=== PATIENT | female | born 2000 | race Caucasian/White ===

== ENCOUNTER 2020-09-28 15:56 | Emergency (ER) | payer SELFPAY ==
[2020-09-28 16:05] VITALS: BP 109/73; PULSE 58; RESP 16; TEMP 36.5; O2SAT 96; BMI 21.2
--- NOTE | 2020-09-28 17:31 | W.ED.SKABFB ---
Documented by User: DAVID Calderon 09/29/20 01:36 HPI - Skin/Abscess/Foreign Bdy General: Chief complaint: Skin/Abscess/Foreign Body Stated complaint: ABSCESS IN GROIN Time Seen by Provider: 09/28/20 17:08 History of Present Illness: HPI narrative: Patient is a 19-year-old female that comes to the ED with nodule around vagina. Patient says she noticed it approximately 1 week ago. Was small at first and it has since gotten larger and larger. The bigger its gotten the more painful it has become. She rates the pain currently 9 out of 10 and says it hurts to walk. Patient says she has had this in the past before but it was smaller and resolved on its own within a couple of days. She took 800 mg of ibuprofen today to help with pain. She denies any fever, nausea/vomiting, UTI symptoms, vaginal bleeding, vaginal discharge, vaginal lesions, STD history. Patient says she is on control. Last menstrual period was 28 days ago, patient says with her control she has a period every 3 months. Associated symptoms: Deny chills, fever(s), nausea or vomiting Review of Systems Const: Denies: fever(s), chills or fatigue Eyes: Denies: change in vision or eye discomfort ENMT: Denies: throat pain, odynophagia, nasal discharge or nasal congestion Card: Denies: chest pain, palpitations, edema, swelling of feet/ankles, dyspnea on exertion or orthopnea Resp: Denies: dyspnea, productive cough or non-productive cough GI: Denies: abdominal pain, nausea, vomiting, diarrhea, constipation or hematochezia : Reports: genital lesions (Bartholin cyst on right side); Denies: flank pain, dysuria or hematuria Musc: Denies: neck pain, back pain or extremity swelling Skin/Breast: Denies: rash or new lesions Neuro: Denies: headache(s), numbness in extremities or weakness in extremities PFSH ED PFSH: Social History Smoking and tobacco status: current every day smoker e-cigarettes Physical Exam Const: COMMON NORMALS: no acute distress, patient oriented x3, healthy appearing and alert GENERAL APPEARANCE: cooperative and comfortable HENMT: COMMON NORMALS: normocephalic HEAD & SCALP: normocephalic MOUTH: Normal oral and palatal mucosa present THROAT: posterior oropharynx normal and uvula midline Neck/C-Spine: COMMON NORMALS: supple GENERAL: Yes normal visual inspection Resp: COMMON NORMALS: normal respiratory effort, No retractions, No use of accessory muscles and clear to auscultation bilaterally AUSCULTATION: clear to auscultation bilaterally Cardio: COMMON NORMALS: regular rate, regular rhythm, S1 normal heart sound present, S2 normal heart sound present, No gallops present (Cardio), No clicks present (Cardio), No murmurs present (Cardio) and Peripheral pulses 2+ throughout RATE: regular rate RHYTHM: regular rhythm HEART SOUNDS: S1 normal heart sound present and S2 normal heart sound present PERIPHERAL PULSES: Peripheral pulses 2+ throughout GI: COMMON NORMALS: Normal to inspection, nondistended, normoactive bowel sounds present, Soft to palpation, non-tender and no masses PALPATION: Yes Soft to palpation : COMMON NORMALS: Yes no CVA tenderness BLADDER/KIDNEY EXAM: Yes no CVA tenderness EXTERNAL FEMALE EXAM: Yes Bartholin cyst Bartholin's cyst laterality: right (6cm, tender with erythema and some warmth) Back/Pelvis: COMMON NORMALS: no CVA tenderness Extremity: COMMON NORMALS: normal to inspection Neuro: COMMON NORMALS: patient oriented x3 and moves all extremities SENSORIUM/ORIENTATION: Yes alert Skin: GENERAL SKIN EXAM: dry skin Procedures Abscess I/D Site: bartholin's gland Side (if applicable): right Sedation/analgesia: other (IV morphine before procedure) Local Anesthetic: other anesthetic (Patient did not want any local anesthetic.) Technique: incised with #11 blade Amount of fluid expressed (mL): 15 (Malodorous purulent drainage.) Irrigation: Yes Packing used?: none Course Reevaluation(s): Reevaluation #1: After Bartholin's gland abscess I&D patient had immediate relief from pain. She was feeling a lot better and ready for discharge. I stressed with patient that she needs to make sure she follows up with PCP in about 5 days to reevaluate. Consultations: Consultation #1: I contacted Dr. Stinson the OB doctor [facility] to discuss patient case. She recommended that I drain the abscess here in the ED she instructed me on how to perform procedure. She said to offer patient local anesthetic or the option of no local anesthetic since there will be pain either way. She recommended to put patient on Keflex if there is a lot of purulent drainage from I&D. Vital Signs: Vital signs: Vital Signs Temperature 97.7 F 09/28/20 16:05 Pulse Rate 60 09/28/20 22:32 Respiratory Rate 18 09/28/20 22:32 Blood Pressure 116/78 09/28/20 22:32 Pulse Oximetry 98 09/28/20 22:32 MDM - Skin/Abscess/Foreign Bdy MDM Narrative: Medical decision making narrative: Patient is a 19-year-old female comes to the ED with Bartholin's gland abscess on right side. Exam showed a Bartholin's gland abscess was approximately 6 cm in size, erythematous and tender. I contacted Dr. Stinson she recommended to perform an I&D using local and instructed me on best procedure methods. Patient was given morphine to help with pain and I&D was performed. Approximately 15 mL of malodorous purulent drainage from abscess. Patient's symptoms greatly improved after I&D was performed. Abscess culture collected. White blood cells 15.4 and the rest of CBC and CMP were unremarkable. Patient was given a dose of IV Rocephin while here in the ED and discharged with a prescription for Keflex. She was told to follow-up with PCP in about 5 days to reevaluate. Return to ED precautions given. Patient understood and agree with plan. Lab Data: Attestation: I reviewed the patient's lab results. Labs: Lab Results 09/28/20 09/28/20 09/28/20 Range/Units 17:50 17:56 17:56 WBC 15.4 H (4.5-13.0) 10^3/ uL RBC 3.93 L (4.1-5.3) 10^6/u L Hgb 11.8 (11.5-15.3) g/dL Hct 36.5 L (37.0-47.0) % MCV 92.9 (81-99) fL MCH 30.0 (28.0-34.0) pg MCHC 32.3 (30.0-36.0) g/dL RDW 12.9 (12.1-15.1) % Plt Count 277 (130-400) 10^3/c mm MPV 10.1 (7.4-10.4) fL Neut % (Auto) 85.4 % Lymph % (Auto) 8.4 % [place] % (Auto) 5.5 % Eos % (Auto) 0.1 % Baso % (Auto) 0.3 % Neut # (Auto) 13.17 H (1.8-8.0) 10^3/u L Lymph # (Auto) 1.3 L (1.5-6.5) 10^3/u L [place] # (Auto) 0.9 (0.2-0.9) 10^3/u L Eos # (Auto) 0.0 (0.0-0.8) 10^3/u L Baso # (Auto) 0.0 (0.0-0.1) 10^3/u L Nucleated RBC % (a uto) 0 % Nucleated RBCs # 0.0 /100WBC Sodium 139 (136-145) mmol/L Potassium 4.4 (3.5-5.1) mmol/L Chloride 104 (98-107) mmol/L Carbon Dioxide 21 L (22-29) mmol/L Anion Gap 18.4 (5-19) BUN 10 (6-20) mg/dL Creatinine 0.6 (0.5-0.9) mg/dL GFR Calculation 128.8 (90-130) mL/min Glucose 90 (65-115) mg/dL Calculated Osmolal ity 287 (285-295) mOsm/k g Calcium 9.1 (8.5-10.5) mg/dL Total Bilirubin 0.6 (0.15-1.2) mg/dL AST 23 (0-32) U/L ALT 19 (0-33) U/L Alkaline Phosphata se 94 (35-105) IU/L Total Protein 7.4 (6.6-8.7) g/dL Albumin 3.6 (3.5-5.2) g/dL Globulin 3.8 (1.3-4.6) g/dL HCG, Qual (Negative) Urine Color Yellow (Yellow) Urine Appearance Sl cloudy A (CLEAR) Urine pH 5 (5-7) Ur Specific Gravit y 1.025 (1.005-1.030) Urine Protein Neg (Negative) Urine Glucose (UA) Norm (Normal) Urine Ketones 1+ H (Negative) Urine Blood 2+ H (Negative) Urine Nitrate Negative (Negative) Urine Bilirubin 1+ H (Negative) Urine Urobilinogen 4 H (Negative) mg/dL Ur Leukocyte Bethanie ase 2+ H (Negative) Urine RBC 5-10 H (0-2) /hpf Urine WBC Too numerous to c nt H (0-5) /hpf Ur Squamous Epith Cells Too numerous to c nt H (0-5) /hpf Calcium Oxalate Cr ystal 10-15 H /hpf Amorphous Sediment Not Reportable Urine Bacteria 2+ H (NONE) /hpf 09/28/20 Range/Units 18:07 WBC (4.5-13.0) 10^3/ uL RBC (4.1-5.3) 10^6/u L Hgb (11.5-15.3) g/dL Hct (37.0-47.0) % MCV (81-99) fL MCH (28.0-34.0) pg MCHC (30.0-36.0) g/dL RDW (12.1-15.1) % Plt Count (130-400) 10^3/c mm MPV (7.4-10.4) fL Neut % (Auto) % Lymph % (Auto) % [place] % (Auto) % Eos % (Auto) % Baso % (Auto) % Neut # (Auto) (1.8-8.0) 10^3/u L Lymph # (Auto) (1.5-6.5) 10^3/u L [place] # (Auto) (0.2-0.9) 10^3/u L Eos # (Auto) (0.0-0.8) 10^3/u L Baso # (Auto) (0.0-0.1) 10^3/u L Nucleated RBC % (a uto) % Nucleated RBCs # /100WBC Sodium (136-145) mmol/L Potassium (3.5-5.1) mmol/L Chloride (98-107) mmol/L Carbon Dioxide (22-29) mmol/L Anion Gap (5-19) BUN (6-20) mg/dL Creatinine (0.5-0.9) mg/dL GFR Calculation (90-130) mL/min Glucose (65-115) mg/dL Calculated Osmolal ity (285-295) mOsm/k g Calcium (8.5-10.5) mg/dL Total Bilirubin (0.15-1.2) mg/dL AST (0-32) U/L ALT (0-33) U/L Alkaline Phosphata se (35-105) IU/L Total Protein (6.6-8.7) g/dL Albumin (3.5-5.2) g/dL Globulin (1.3-4.6) g/dL HCG, Qual Negative (Negative) Urine Color (Yellow) Urine Appearance (CLEAR) Urine pH (5-7) Ur Specific Gravit y (1.005-1.030) Urine Protein (Negative) Urine Glucose (UA) (Normal) Urine Ketones (Negative) Urine Blood (Negative) Urine Nitrate (Negative) Urine Bilirubin (Negative) Urine Urobilinogen (Negative) mg/dL Ur Leukocyte Bethanie ase (Negative) Urine RBC (0-2) /hpf Urine WBC (0-5) /hpf Ur Squamous Epith Cells (0-5) /hpf Calcium Oxalate Cr ystal /hpf Amorphous Sediment Urine Bacteria (NONE) /hpf Discharge Plan Discharge Patient Disposition: Home Clinical Impression: Abscess of Bartholin's gland Condition: Stable Prescriptions: New Keflex 500 mg capsule 500 mg PO TID 7 Days Qty: 21 RF: 0 No Action Aviane 0.1-20 mg-mcg tablet 1 tab PO DAILY@07 RF: 0 ibuprofen 200 mg Tablet 800 mg PO PRN RF: 0 Augmentin 875-125 mg Tablet 1 tab PO BID RF: 0 Discharge Orders: Discharge ED (Routine); Ordered 09/28/20 Ordered By: Bonifacio Mullen Referrals: Amberly Isabel MD [Primary Care Provider] - Discharge Diet: Regular Discharge Activity: Resume usual activity Patient Instructions: Bartholin's Abscess, Incision and Drainage (ED) Activity Restrictions/Additional Instructions: Follow-up with medical provider as directed in about 5 days for reevaluation. Take medications as prescribed. Return to the ER or your medical provider if condition worsens. Please read and understand discharge instructions. If any questions, please ask. Stand Alone Forms: Work/School Release Coding Level of Care Code ED Director Of Gift Planning for g Fwd Exam Comprehensive Documented by User: Rufino Ballard MD 09/29/20 11:12 HPI - Skin/Abscess/Foreign Bdy General: Chief complaint: Skin/Abscess/Foreign Body Stated complaint: ABSCESS IN GROIN Time Seen by Provider: 09/28/20 17:08 PFSH ED PFSH: Social History Smoking and tobacco status: current every day smoker e-cigarettes Course Vital Signs: Vital signs: Vital Signs Temperature 97.7 F 09/28/20 16:05 Pulse Rate 60 09/28/20 22:32 Respiratory Rate 18 09/28/20 22:32 Blood Pressure 116/78 09/28/20 22:32 Pulse Oximetry 98 09/28/20 22:32 MDM - Skin/Abscess/Foreign Bdy Lab Data: Labs: Lab Results 09/28/20 09/28/20 09/28/20 Range/Units 17:50 17:56 17:56 WBC 15.4 H (4.5-13.0) 10^3/ uL RBC 3.93 L (4.1-5.3) 10^6/u L Hgb 11.8 (11.5-15.3) g/dL Hct 36.5 L (37.0-47.0) % MCV 92.9 (81-99) fL MCH 30.0 (28.0-34.0) pg MCHC 32.3 (30.0-36.0) g/dL RDW 12.9 (12.1-15.1) % Plt Count 277 (130-400) 10^3/c mm MPV 10.1 (7.4-10.4) fL Neut % (Auto) 85.4 % Lymph % (Auto) 8.4 % [place] % (Auto) 5.5 % Eos % (Auto) 0.1 % Baso % (Auto) 0.3 % Neut # (Auto) 13.17 H (1.8-8.0) 10^3/u L Lymph # (Auto) 1.3 L (1.5-6.5) 10^3/u L [place] # (Auto) 0.9 (0.2-0.9) 10^3/u L Eos # (Auto) 0.0 (0.0-0.8) 10^3/u L Baso # (Auto) 0.0 (0.0-0.1) 10^3/u L Nucleated RBC % (a uto) 0 % Nucleated RBCs # 0.0 /100WBC Sodium 139 (136-145) mmol/L Potassium 4.4 (3.5-5.1) mmol/L Chloride 104 (98-107) mmol/L Carbon Dioxide 21 L (22-29) mmol/L Anion Gap 18.4 (5-19) BUN 10 (6-20) mg/dL Creatinine 0.6 (0.5-0.9) mg/dL GFR Calculation 128.8 (90-130) mL/min Glucose 90 (65-115) mg/dL Calculated Osmolal ity 287 (285-295) mOsm/k g Calcium 9.1 (8.5-10.5) mg/dL Total Bilirubin 0.6 (0.15-1.2) mg/dL AST 23 (0-32) U/L ALT 19 (0-33) U/L Alkaline Phosphata se 94 (35-105) IU/L Total Protein 7.4 (6.6-8.7) g/dL Albumin 3.6 (3.5-5.2) g/dL Globulin 3.8 (1.3-4.6) g/dL HCG, Qual (Negative) Urine Color Yellow (Yellow) Urine Appearance Sl cloudy A (CLEAR) Urine pH 5 (5-7) Ur Specific Gravit y 1.025 (1.005-1.030) Urine Protein Neg (Negative) Urine Glucose (UA) Norm (Normal) Urine Ketones 1+ H (Negative) Urine Blood 2+ H (Negative) Urine Nitrate Negative (Negative) Urine Bilirubin 1+ H (Negative) Urine Urobilinogen 4 H (Negative) mg/dL Ur Leukocyte Bethanie ase 2+ H (Negative) Urine RBC 5-10 H (0-2) /hpf Urine WBC Too numerous to c nt H (0-5) /hpf Ur Squamous Epith Cells Too numerous to c nt H (0-5) /hpf Calcium Oxalate Cr ystal 10-15 H /hpf Amorphous Sediment Not Reportable Urine Bacteria 2+ H (NONE) /hpf 09/28/20 Range/Units 18:07 WBC (4.5-13.0) 10^3/ uL RBC (4.1-5.3) 10^6/u L Hgb (11.5-15.3) g/dL Hct (37.0-47.0) % MCV (81-99) fL MCH (28.0-34.0) pg MCHC (30.0-36.0) g/dL RDW (12.1-15.1) % Plt Count (130-400) 10^3/c mm MPV (7.4-10.4) fL Neut % (Auto) % Lymph % (Auto) % [place] % (Auto) % Eos % (Auto) % Baso % (Auto) % Neut # (Auto) (1.8-8.0) 10^3/u L Lymph # (Auto) (1.5-6.5) 10^3/u L [place] # (Auto) (0.2-0.9) 10^3/u L Eos # (Auto) (0.0-0.8) 10^3/u L Baso # (Auto) (0.0-0.1) 10^3/u L Nucleated RBC % (a uto) % Nucleated RBCs # /100WBC Sodium (136-145) mmol/L Potassium (3.5-5.1) mmol/L Chloride (98-107) mmol/L Carbon Dioxide (22-29) mmol/L Anion Gap (5-19) BUN (6-20) mg/dL Creatinine (0.5-0.9) mg/dL GFR Calculation (90-130) mL/min Glucose (65-115) mg/dL Calculated Osmolal ity (285-295) mOsm/k g Calcium (8.5-10.5) mg/dL Total Bilirubin (0.15-1.2) mg/dL AST (0-32) U/L ALT (0-33) U/L Alkaline Phosphata se (35-105) IU/L Total Protein (6.6-8.7) g/dL Albumin (3.5-5.2) g/dL Globulin (1.3-4.6) g/dL HCG, Qual Negative (Negative) Urine Color (Yellow) Urine Appearance (CLEAR) Urine pH (5-7) Ur Specific Gravit y (1.005-1.030) Urine Protein (Negative) Urine Glucose (UA) (Normal) Urine Ketones (Negative) Urine Blood (Negative) Urine Nitrate (Negative) Urine Bilirubin (Negative) Urine Urobilinogen (Negative) mg/dL Ur Leukocyte Bethanie ase (Negative) Urine RBC (0-2) /hpf Urine WBC (0-5) /hpf Ur Squamous Epith Cells (0-5) /hpf Calcium Oxalate Cr ystal /hpf Amorphous Sediment Urine Bacteria (NONE) /hpf Discharge Plan Discharge Patient Disposition: Home Clinical Impression: Abscess of Bartholin's gland Condition: Stable Prescriptions: New Keflex 500 mg capsule 500 mg PO TID 7 Days Qty: 21 RF: 0 No Action Aviane 0.1-20 mg-mcg tablet 1 tab PO DAILY@07 RF: 0 ibuprofen 200 mg Tablet 800 mg PO PRN RF: 0 Augmentin 875-125 mg Tablet 1 tab PO BID RF: 0 Discharge Orders: Discharge ED (Routine); Ordered 09/28/20 Ordered By: Bonifacio Mullen Referrals: Amberly Isabel MD [Primary Care Provider] - Discharge Diet: Regular Discharge Activity: Resume usual activity Patient Instructions: Bartholin's Abscess, Incision and Drainage (ED) Activity Restrictions/Additional Instructions: Follow-up with medical provider as directed in about 5 days for reevaluation. Take medications as prescribed. Return to the ER or your medical provider if condition worsens. Please read and understand discharge instructions. If any questions, please ask. Stand Alone Forms: Work/School Release Coding Level of Care Code ED Director Of Gift Planning for Chg Fwd Exam Comprehensive
--- NOTE | 2020-09-28 17:44 | PC.PHAR ---
pt states she has been taking augmentin bid since yesterday-pt states this was one of her family members old rx
[2020-09-28 18:05] LABS: Basophils % 0.3 %; Eosinophils % 0.1 %; Hematocrit 36.5 % (37.0-47.0); Hemoglobin 11.8 g/dL (11.5-15.3); Lymphocytes # 1.3 10^3/uL (1.5-6.5); Lymphocytes % 8.4 %; Mean Corpuscular HGB Conc 32.3 g/dL (30.0-36.0); Mean Corpuscular Volume 92.9 fL (81-99); Mean Platelet Volume 10.1 fL (7.4-10.4); Monocytes # 0.9 10^3/uL (0.2-0.9); Monocytes % 5.5 %; Neutrophils # 13.17 10^3/uL (1.8-8.0); Neutrophils % 85.4 %; Nucleated Red Blood Cells % 0 %; Platelet Count 277 10^3/cmm (130-400); Red Blood Count 3.93 10^6/uL (4.1-5.3); Red Cell Distribution Width 12.9 % (12.1-15.1); White Blood Count 15.4 10^3/uL (4.5-13.0)
[2020-09-28 18:07] VITALS: RESP 18
[2020-09-28] MEDS: ondansetron 2 mg/ML SDV 2 mL 4 MG IVP (18:07)
[2020-09-28] MEDS: morphine 4 mg/mL SDV 1 mL IVP ×2 (18:07→20:38)
[2020-09-28 18:45] LABS: Bilirubin Urine 1+ (Negative); Blood Urine 2+ (Negative); Glucose Urine UA Norm (Normal); Ketones Urine 1+ (Negative); Leukocyte Esterase Urine 2+ (Negative); Nitrate Urine Negative (Negative); Protein Urine Neg (Negative); Specific Gravity, Urine 1.025 (1.005-1.030); Urine Color Yellow (Yellow); Urobilinogen Urine 4 mg/dL (Negative); pH Urine 5 (5-7)
[2020-09-28 18:46] LABS: Squamous Epithelial Cell Urine TOO NUMEROUS TO CNT /hpf (0-5); WBC Urine TOO NUMEROUS TO CNT /hpf (0-5)
[2020-09-28 18:47] LABS: Add Urine Culture? No; Bacteria Urine 2+ /hpf
[2020-09-28 18:48] LABS: Alanine Aminotransferase 19 U/L (0-33); Albumin Level 3.6 g/dL (3.5-5.2); Alkaline Phosphatase 94 IU/L (35-105); Anion Gap 18.4 (5-19); Aspartate Amino Transferase 23 U/L (0-32); Blood Urea Nitrogen 10 mg/dL (6-20); Calcium 9.1 mg/dL (8.5-10.5); Carbon Dioxide 21 mmol/L (22-29); Chloride 104 mmol/L (98-107); Globulin 3.8 g/dL (1.3-4.6); Glomerular Filtration Rate 128.8 mL/min (90-130); Glucose 90 mg/dL (65-115); Osmolality Calculated 287 mOsm/kg (285-295); Potassium 4.4 mmol/L (3.5-5.1); Sodium 139 mmol/L (136-145); Total Bilirubin 0.6 mg/dL (0.15-1.2); Total Protein 7.4 g/dL (6.6-8.7)
[2020-09-28 18:59] LABS: HCG, Serum Qual Negative (Negative)
[2020-09-28] MEDS: cefTRIAXone 2,000 MG in sodium chloride 0.9% (plus) 50 ML 100 MG IV (19:55)
[2020-09-28] MEDS: sodium chloride 0.9% 1,000 ML 999 ML IV (19:56)
[2020-09-28 20:38] VITALS: RESP 187; O2SAT 98
[2020-09-28 22:32] VITALS: BP 116/78; PULSE 60; RESP 18; O2SAT 98
== END 2020-09-28 22:00 | disposition home or self-care (01) ==
PROVIDERS: Emergency Provider Physician Assistant; PCP Family Medicine
DX: N75.1 Abscess of Bartholin's gland (principal); F17.290 Nicotine dependence, other tobacco product, uncomplicated
CPT/HCPCS: 56420; 80053; 81001; 84703; 85025; 87070; 87075; 87205; 96365; 96375; 96376; 99283; J0696; J2270; J2405; J7030

== ENCOUNTER 2020-12-19 21:09 | Emergency (ER) | payer SELFPAY ==
--- NOTE | 2020-12-19 21:11 | US_ITS ---
WS: [id number] Gallbladder ultrasound, 12/19/2020 Clinical Data: RUQ pain Comparison: None. Findings: The gallbladder shows no sludge or stone. The wall measures 0.2 cm with no pericholecystic fluid. The common bile duct is 0.4 cm and there are no intrahepatic ductal abnormalities. Liver shows no cysts, masses or dilated intrahepatic ducts. The pancreas is not obscured by overlying bowel gas and no cyst, pseudocyst, or evidence of pancreati tis is noted. Right kidney measures 9.6 cm and no cyst, masses or hydronephrosis can be seen. The aorta and inferior vena cava show no vascular abnormalities. US/US gall bladder [id number] Impression: Negative right upper quadrant and gallbladder ultrasound.
[2020-12-19 21:12] VITALS: BP 126/70; PULSE 92; RESP 16; TEMP 37.2; O2SAT 100; BMI 22.1
--- NOTE | 2020-12-19 21:17 | W.ED.ABDPA2 ---
HPI - Abdominal Pain General: Chief Complaint: Abdominal Pain Stated Complaint: RUQ ABD PAIN Time Seen by Provider: 12/19/20 21:10 History of Present Illness: HPI narrative: Patient is a 20-year-old female comes to the ED with abdominal pain. Pain started approximately 1 week ago. Pain is located in the right upper quadrant. She rates the pain a 7 out of 10. She says that she has not had much of an appetite since onset of pain. Pain does not worsen after eating. She denies any fever, chills, nausea, vomiting, diarrhea, constipation, dysuria or hematuria. Associated Symptoms: Denies chills, constipation, diarrhea, dysuria, fever(s), hematochezia, hematuria, nausea and vomiting Related Data: Date of Last Menstrual Period: 12/14/20 Review of Systems Const: Denies: fever(s), chills or fatigue Eyes: Denies: change in vision or eye discomfort ENMT: Denies: throat pain, odynophagia, nasal discharge or nasal congestion Card: Denies: chest pain, palpitations, edema, swelling of feet/ankles, dyspnea on exertion or orthopnea Resp: Denies: dyspnea, productive cough or non-productive cough GI: Reports: abdominal pain; Denies: nausea, vomiting, diarrhea, constipation or hematochezia : Denies: flank pain, dysuria or hematuria Musc: Denies: neck pain, back pain or extremity swelling Skin/Breast: Denies: rash or new lesions Neuro: Denies: headache(s), numbness in extremities or weakness in extremities PFS ED PFSH: Social History Smoking and tobacco status: current every day smoker e-cigarettes Female Reproductive History: Date of last menstrual period: 12/14/20 Physical Exam Const: COMMON NORMALS: no acute distress, patient oriented x3, healthy appearing and alert GENERAL APPEARANCE: cooperative and comfortable HENMT: COMMON NORMALS: normocephalic HEAD & SCALP: normocephalic MOUTH: Normal oral and palatal mucosa present THROAT: posterior oropharynx normal and uvula midline Neck/C-Spine: COMMON NORMALS: supple GENERAL: Yes normal visual inspection Resp: COMMON NORMALS: normal respiratory effort, No retractions, No use of accessory muscles and clear to auscultation bilaterally AUSCULTATION: clear to auscultation bilaterally Cardio: COMMON NORMALS: regular rate, regular rhythm, S1 normal heart sound present, S2 normal heart sound present, No gallops present (Cardio), No clicks present (Cardio), No murmurs present (Cardio) and Peripheral pulses 2+ throughout RATE: regular rate RHYTHM: regular rhythm HEART SOUNDS: S1 normal heart sound present and S2 normal heart sound present PERIPHERAL PULSES: Peripheral pulses 2+ throughout GI: COMMON NORMALS: Normal to inspection, nondistended, normoactive bowel sounds present, Soft to palpation and no masses PALPATION: Yes Soft to palpation and Yes Tenderness to palpation present (GI) Details: RLQ and RUQ (Positive Wagoner sign.) : COMMON NORMALS: Yes no CVA tenderness BLADDER/KIDNEY EXAM: Yes no CVA tenderness Back/Pelvis: COMMON NORMALS: no CVA tenderness Extremity: COMMON NORMALS: normal to inspection Neuro: COMMON NORMALS: patient oriented x3 SENSORIUM/ORIENTATION: Yes alert GAIT: Yes Normal gait present Skin: GENERAL SKIN EXAM: dry skin Course Vital Signs: Vital signs: Vital Signs Temperature 98.9 F 12/19/20 21:12 Pulse Rate 82 12/19/20 23:26 Respiratory Rate 17 12/19/20 23:26 Blood Pressure 110/72 12/19/20 23:26 Pulse Oximetry 99 12/19/20 23:26 MDM - Abdominal Pain MDM Narrative: Medical decision making narrative: Patient is a 20-year-old female comes to the ED with abdominal pain. Patient has no other symptoms denies any fever, chills, nausea/vomiting or diarrhea. Exam findings show a nontoxic appearing patient in no acute distress or pain. She has tenderness upon palpation of her right upper quadrant region with positive Wagoner sign. She also has some mild generalized tenderness of the right lower quadrant as well. Vital stable all labs were unremarkable. Ultrasound of the gallbladder showed no acute findings. CT of the abdomen pelvis showed some small bowel enteritis. Patient diagnosed with gastroenteritis and she was discharged home with a prescription for dicyclomine and Reglan. She was told to drink plenty of fluids and stay hydrated and to follow-up with PCP in 7 to 10 days for reevaluation. Return to ED precautions given. Patient understood agree with plan. Lab Data: Attestation: I reviewed the patient's lab results. Labs: Lab Results 12/19/20 12/19/20 12/19/20 Range/Units 21:25 21:25 21:25 WBC 10.2 (4.5-13.0) 10^3/ uL RBC 3.95 L (4.1-5.3) 10^6/u L Hgb 11.9 (11.5-15.3) g/dL Hct 36.4 L (37.0-47.0) % MCV 92.2 (81-99) fL MCH 30.1 (28.0-34.0) pg MCHC 32.7 (30.0-36.0) g/dL RDW 12.0 L (12.1-15.1) % Plt Count 313 (130-400) 10^3/c mm MPV 9.3 (7.4-10.4) fL Neut % (Auto) 80.7 % Lymph % (Auto) 12.4 % Forest % (Auto) 6.2 % Eos % (Auto) 0.2 % Baso % (Auto) 0.3 % Neut # (Auto) 8.19 H (1.8-8.0) 10^3/u L Lymph # (Auto) 1.3 L (1.5-6.5) 10^3/u L Forest # (Auto) 0.6 (0.2-0.9) 10^3/u L Eos # (Auto) 0.0 (0.0-0.8) 10^3/u L Baso # (Auto) 0.0 (0.0-0.1) 10^3/u L Nucleated RBC % (a uto) 0 % Nucleated RBCs # 0.0 /100WBC Sodium 136 (136-145) mmol/L Potassium 3.8 (3.5-5.1) mmol/L Chloride 100 (98-107) mmol/L Carbon Dioxide 23 (22-29) mmol/L Anion Gap 16.8 (5-19) BUN 10 (6-20) mg/dL Creatinine 0.5 (0.5-0.9) mg/dL GFR Calculation 157.3 H (90-130) mL/min Glucose 84 (65-115) mg/dL Calculated Osmolal ity 280 L (285-295) mOsm/k g Calcium 8.9 (8.5-10.5) mg/dL Total Bilirubin 0.5 (0.15-1.2) mg/dL AST 15 (0-32) U/L ALT 14 (0-33) U/L Alkaline Phosphata se 85 (35-105) IU/L Total Protein 7.5 (6.6-8.7) g/dL Albumin 4.1 (3.5-5.2) g/dL Globulin 3.4 (1.3-4.6) g/dL Lipase 12 L (13-60) U/L HCG, Qual Negative (Negative) Urine Color (Yellow) Urine Appearance (CLEAR) Urine pH (5-7) Ur Specific Gravit y (1.005-1.030) Urine Protein (Negative) Urine Glucose (UA) (Normal) Urine Ketones (Negative) Urine Blood (Negative) Urine Nitrate (Negative) Urine Bilirubin (Negative) Urine Urobilinogen (Negative) mg/dL Ur Leukocyte Bethanie ase (Negative) Urine RBC (0-2) /hpf Urine WBC (0-5) /hpf Ur Squamous Epith Cells (0-5) /hpf Amorphous Sediment Urine Bacteria (NONE) /hpf Urine Mucus /hpf /01/04 Range/Units Unknown WBC (4.5-13.0) 10^3/ uL RBC (4.1-5.3) 10^6/u L Hgb (11.5-15.3) g/dL Hct (37.0-47.0) % MCV (81-99) fL MCH (28.0-34.0) pg MCHC (30.0-36.0) g/dL RDW (12.1-15.1) % Plt Count (130-400) 10^3/c mm MPV (7.4-10.4) fL Neut % (Auto) % Lymph % (Auto) % Forest % (Auto) % Eos % (Auto) % Baso % (Auto) % Neut # (Auto) (1.8-8.0) 10^3/u L Lymph # (Auto) (1.5-6.5) 10^3/u L Forest # (Auto) (0.2-0.9) 10^3/u L Eos # (Auto) (0.0-0.8) 10^3/u L Baso # (Auto) (0.0-0.1) 10^3/u L Nucleated RBC % (a uto) % Nucleated RBCs # /100WBC Sodium (136-145) mmol/L Potassium (3.5-5.1) mmol/L Chloride (98-107) mmol/L Carbon Dioxide (22-29) mmol/L Anion Gap (5-19) BUN (6-20) mg/dL Creatinine (0.5-0.9) mg/dL GFR Calculation (90-130) mL/min Glucose (65-115) mg/dL Calculated Osmolal ity (285-295) mOsm/k g Calcium (8.5-10.5) mg/dL Total Bilirubin (0.15-1.2) mg/dL AST (0-32) U/L ALT (0-33) U/L Alkaline Phosphata se (35-105) IU/L Total Protein (6.6-8.7) g/dL Albumin (3.5-5.2) g/dL Globulin (1.3-4.6) g/dL Lipase (13-60) U/L HCG, Qual (Negative) Urine Color Yellow (Yellow) Urine Appearance Sl hazy (CLEAR) Urine pH 5 (5-7) Ur Specific Gravit y 1.015 (1.005-1.030) Urine Protein Trace (Negative) Urine Glucose (UA) Norm (Normal) Urine Ketones 3+ H (Negative) Urine Blood 2+ H (Negative) Urine Nitrate Negative (Negative) Urine Bilirubin Neg (Negative) Urine Urobilinogen 1 H (Negative) mg/dL Ur Leukocyte Bethanie ase Negative (Negative) Urine RBC 0-4 H (0-2) /hpf Urine WBC 5-10 H (0-5) /hpf Ur Squamous Epith Cells 0-4 H (0-5) /hpf Amorphous Sediment Not Reportable Urine Bacteria Trace (NONE) /hpf Urine Mucus 1+ /hpf Imaging Data ^: US: Attestation: I personally reviewed and interpreted this imaging study as follows: Radiologist's impression: Ultrasound gallbladder?prelim report?normal right upper quadrant ultrasound findings. Gallbladder normal and CBD normal. CT Abd/Pel: Attestation: I personally reviewed and interpreted this imaging study as follows: Radiologist's impression: [employer] [address] [address] Scan Report Signed Patient: Mery Valencia Unit #: [id number] : 2000 Age/Sex: 20 / F ADM Date: 12/19/20 Loc: ER Room/Bed: Attending Dr: Ordering Provider/Ordering MD: Bonifacio Mullen Date of Service: 12/19/20 Procedure(s): CT abdomen pelvis w con* [id number] Accession Number(s): [id number] Report Number: [id number] PROCEDURE INFORMATION: Exam: CT Abdomen And Pelvis With Contrast Exam date and time: 12/19/2020 9:47 PM Age: 20 years old Clinical indication: Abdominal pain; Localized; Right lower quadrant (rlq); Patient HX: Rlq pain; Additional info: Abdominal pain ruq and rlq TECHNIQUE: Imaging protocol: Computed tomography of the abdomen and pelvis with contrast. Radiation optimization: All CT scans at this facility use at least one of these dose optimization techniques: automated exposure control; mA and/or kV adjustment per patient size (includes targeted exams where dose is matched to clinical indication); or iterative reconstruction. Contrast material: OMNI 300; Contrast volume: 75 ml; Contrast route: INTRAVENOUS (IV); COMPARISON: US gall bladder [id number] 12/19/2020 9:26 PM RADIATION DOSE METRICS: Total DLP (mGy-cm): 699.19 FINDINGS: Lungs: The lung bases are clear. No effusion Liver: Normal. No mass. Gallbladder and bile ducts: No wall thickening, pericholecystic fluid or stones. Pancreas: Normal. No ductal dilation. Spleen: Normal. No splenomegaly. Adrenal glands: Normal. No mass. Kidneys and ureters: Normal. No hydronephrosis. Stomach and bowel: Multiple loops of thickened proximal small bowel. Appendix: No evidence of appendicitis. Intraperitoneal space: Unremarkable. No free air. No significant fluid collection. Vasculature: Unremarkable. No abdominal aortic aneurysm. Lymph nodes: Unremarkable. No enlarged lymph nodes. Urinary bladder: Unremarkable as visualized. Reproductive: Unremarkable as visualized. Bones/joints: Unremarkable. No acute fracture. Soft tissues: Unremarkable. CT/CT abdomen pelvis w con* [id number] IMPRESSION: Infectious/inflammatory proximal small bowel enteritis. Radiation Dose CTDIVOL = (mGy): DLP = 699.19 (mGy-cm) Dictated By: Robert Pop Signed By: Robert Pop Signed Date/Time: 12/19/202209 DD/ 08 Discharge Plan Discharge Patient Disposition: Home Clinical Impression: Gastroenteritis Condition: Stable Prescriptions: New dicyclomine 20 mg tablet 20 mg PO QID Qty: 20 RF: 0 Reglan 10 mg tablet 10 mg PO Q6H PRN (Reason: nausea and vomiting) Qty: 10 RF: 0 No Action Aviane 0.1-20 mg-mcg tablet 1 tab PO DAILY@07 RF: 0 ibuprofen 200 mg Tablet 800 mg PO PRN RF: 0 Augmentin 875-125 mg Tablet 1 tab PO BID RF: 0 Discharge Orders: Discharge ED (Routine); Ordered 12/19/20 Ordered By: Bonifacio Mullen Discharge Diet: Regular Discharge Activity: Resume usual activity Patient Instructions: Gastroenteritis (ED) Activity Restrictions/Additional Instructions: Follow-up with medical provider as directed in 7 to 10 days for reevaluation. Take medications as prescribed. Drink plenty of fluids and stay hydrated. Return to the ER or your medical provider if condition worsens. Please read and understand discharge instructions. Thank you for choosing [facility] for your healthcare needs today. Please realize this is an emergency room and that we are providing you with a medical screening exam and this may not be complete and all inclusive of all the testing and or work up that you may need to determine your ailment or severity of your illness. It is very important that you follow up as instructed or that you return to the Emergency Department should you have concerns or if your condition changes or worsens in any way. 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
[2020-12-19 21:31] LABS: Basophils % 0.3 %; Eosinophils % 0.2 %; Hematocrit 36.4 % (37.0-47.0); Hemoglobin 11.9 g/dL (11.5-15.3); Lymphocytes # 1.3 10^3/uL (1.5-6.5); Lymphocytes % 12.4 %; Mean Corpuscular HGB Conc 32.7 g/dL (30.0-36.0); Mean Corpuscular Hemoglobin 30.1 pg (28.0-34.0); Mean Corpuscular Volume 92.2 fL (81-99); Mean Platelet Volume 9.3 fL (7.4-10.4); Monocytes # 0.6 10^3/uL (0.2-0.9); Monocytes % 6.2 %; Neutrophils # 8.19 10^3/uL (1.8-8.0); Neutrophils % 80.7 %; Nucleated Red Blood Cells % 0 %; Platelet Count 313 10^3/cmm (130-400); Red Blood Count 3.95 10^6/uL (4.1-5.3); White Blood Count 10.2 10^3/uL (4.5-13.0)
--- NOTE | 2020-12-19 21:43 | CTR_ITS ---
PROCEDURE INFORMATION: Exam: CT Abdomen And Pelvis With Contrast Exam date and time: 12/19/2020 9:47 PM Age: 20 years old Clinical indication: Abdominal pain; Localized; Right lower quadrant (rlq); Patient HX: Rlq pain; Additional info: Abdominal pain ruq and rlq TECHNIQUE: Imaging protocol: Computed tomography of the abdomen and pelvis with contrast. Radiation optimization: All CT scans at this facility use at least one of these dose optimization techniques: automated exposure control; mA and/or kV adjustment per patient size (includes targeted exams where dose is matched to clinical indication); or iterative reconstruction. Contrast material: OMNI 300; Contrast volume: 75 ml; Contrast route: INTRAVENOUS (IV); COMPARISON: US gall bladder [id number] 12/19/2020 9:26 PM RADIATION DOSE METRICS: Total DLP (mGy-cm): 699.19 FINDINGS: Lungs: The lung bases are clear. No effusion Liver: Normal. No mass. Gallbladder and bile ducts: No wall thickening, pericholecystic fluid or stones. Pancreas: Normal. No ductal dilation. Spleen: Normal. No splenomegaly. Adrenal glands: Normal. No mass. Kidneys and ureters: Normal. No hydronephrosis. Stomach and bowel: Multiple loops of thickened proximal small bowel. Appendix: No evidence of appendicitis. Intraperitoneal space: Unremarkable. No free air. No significant fluid collection. Vasculature: Unremarkable. No abdominal aortic aneurysm. Lymph nodes: Unremarkable. No enlarged lymph nodes. Urinary bladder: Unremarkable as visualized. Reproductive: Unremarkable as visualized. Bones/joints: Unremarkable. No acute fracture. Soft tissues: Unremarkable. CT/CT abdomen pelvis w con* [id number] IMPRESSION: Infectious/inflammatory proximal small bowel enteritis. Radiation Dose CTDIVOL = (mGy): DLP = 699.19 (mGy-cm)
[2020-12-19 21:46] LABS: HCG, Serum Qual Negative (Negative)
[2020-12-19 21:51] VITALS: RESP 18; O2SAT 97
[2020-12-19] MEDS: ondansetron 2 mg/ML SDV 2 mL 4 MG IVP (21:51)
[2020-12-19] MEDS: morphine 4 mg/mL SDV 1 mL IVP ×2 (21:51→23:05)
[2020-12-19] MEDS: sodium chloride 0.9% 500 ML 999 ML IV (21:51)
[2020-12-19 21:55] LABS: Alanine Aminotransferase 14 U/L (0-33); Albumin Level 4.1 g/dL (3.5-5.2); Alkaline Phosphatase 85 IU/L (35-105); Anion Gap 16.8 (5-19); Aspartate Amino Transferase 15 U/L (0-32); Blood Urea Nitrogen 10 mg/dL (6-20); Calcium 8.9 mg/dL (8.5-10.5); Carbon Dioxide 23 mmol/L (22-29); Chloride 100 mmol/L (98-107); Globulin 3.4 g/dL (1.3-4.6); Glomerular Filtration Rate 157.3 mL/min (90-130); Glucose 84 mg/dL (65-115); Lipase 12 U/L (13-60); Osmolality Calculated 280 mOsm/kg (285-295); Potassium 3.8 mmol/L (3.5-5.1); Sodium 136 mmol/L (136-145); Total Bilirubin 0.5 mg/dL (0.15-1.2); Total Protein 7.5 g/dL (6.6-8.7)
[2020-12-19] MEDS: iohexol 300 mg/mL 100 mL Btl IV (22:00)
[2020-12-19 23:05] VITALS: RESP 97; O2SAT 17
[2020-12-19 23:26] VITALS: BP 110/72; PULSE 82; RESP 17; O2SAT 99
[2020-12-19 23:33] LABS: Bacteria Urine TRACE /hpf; Bilirubin Urine Neg (Negative); Blood Urine 2+ (Negative); Glucose Urine UA Norm (Normal); Ketones Urine 3+ (Negative); Leukocyte Esterase Urine Negative (Negative); Mucus Urine 1+ /hpf; Nitrate Urine Negative (Negative); Protein Urine Trace (Negative); RBC Urine 0-4 /hpf (0-2); Specific Gravity, Urine 1.015 (1.005-1.030); Squamous Epithelial Cell Urine 0-4 /hpf (0-5); Urine Appearance SL Hazy (CLEAR); Urine Color Yellow (Yellow); Urobilinogen Urine 1 mg/dL (Negative); pH Urine 5 (5-7)
== END 2020-12-20 00:03 | disposition home or self-care (01) ==
PROVIDERS: Emergency Provider Physician Assistant
DX: K52.9 Noninfective gastroenteritis and colitis, unspecified (principal); F17.290 Nicotine dependence, other tobacco product, uncomplicated
CPT/HCPCS: 74177; 76705; 80053; 81001; 83690; 84703; 85025; 96361; 96374; 96376; 99284; J2270; J2405; J7040; Q9967

== ENCOUNTER 2020-12-22 16:38 | Emergency (ER) | payer SELFPAY ==
[2020-12-22 16:59] VITALS: BP 99/57; PULSE 74; RESP 16; TEMP 36.7; O2SAT 97; BMI 22.1
--- NOTE | 2020-12-22 17:14 | CTR_ITS ---
PROCEDURE INFORMATION: Exam: CTA Chest With Contrast Exam date and time: 12/22/2020 5:35 PM Age: 20 years old Clinical indication: Abdominal pain; Epigastric; Right-sided chest pain; Patient HX: C/O R chest/shoulder pain w continued upper abd pain; Additional info: Right shoulder sharp pain when breathes TECHNIQUE: Imaging protocol: Computed tomographic angiography of the chest with contrast. 3D rendering (Not supervised by radiologist): MIP and/or 3D reconstructed images were created by the technologist. Radiation optimization: All CT scans at this facility use at least one of these dose optimization techniques: automated exposure control; mA and/or kV adjustment per patient size (includes targeted exams where dose is matched to clinical indication); or iterative reconstruction. Contrast material: OMNI 350; Contrast volume: 75 ml; Contrast route: INTRAVENOUS (IV); COMPARISON: No relevant prior studies available. RADIATION DOSE METRICS: Total DLP (mGy-cm): 934.88 FINDINGS: Pulmonary arteries: No evidence of pulmonary embolus. Aorta: No acute abnormality. Lungs: No consolidation. No masses. Pleural spaces: Unremarkable. No pneumothorax. No pleural effusion. Heart: No cardiomegaly. No pericardial effusion. Lymph nodes: No enlarged lymph nodes. Bones/joints: No acute fracture. Soft tissues: Within normal limits. IMPRESSION: No acute findings. PROCEDURE INFORMATION: Exam: CT Abdomen And Pelvis With Contrast Exam date and time: 12/22/2020 5:35 PM Age: 20 years old Clinical indication: Abdominal pain; Epigastric; Right-sided chest pain; Patient HX: C/O R chest/shoulder pain w continued upper abd pain; Additional info: Right shoulder sharp pain when breathes TECHNIQUE: Imaging protocol: Computed tomography of the abdomen and pelvis with contrast. Radiation optimization: All CT scans at this facility use at least one of these dose optimization techniques: automated exposure control; mA and/or kV adjustment per patient size (includes targeted exams where dose is matched to clinical indication); or iterative reconstruction. Contrast material: OMNI 350; Contrast volume: 75 ml; Contrast route: INTRAVENOUS (IV); COMPARISON: No relevant prior studies available. RADIATION DOSE METRICS: Total DLP (mGy-cm): 934.88 FINDINGS: Lungs: The visualized lung bases are clear. Liver: Normal size and density. No focal mass. Gallbladder and bile ducts: No intrahepatic or extrahepatic biliary dilitation. No calcified stones. Pancreas: No evidence of mass. No ductal dilation. Spleen: No splenomegaly or mass. Adrenal glands: Normal. Kidneys and ureters: No stones or hydronephrosis. No evidence of focal mass. Stomach and bowel: No evidence of obstruction. No focal bowel wall thickening or mass. No significant diverticula. Appendix: No evidence of appendicitis. Intraperitoneal space: No free air. No free fluid or evidence of abscess. Vasculature: No concerning abnormalities. Lymph nodes: No lymphadenopathy. Urinary bladder: Normal CT appearance. Reproductive: Normal CT appearance for age. Bones/joints: No acute abnormality. Soft tissues: Within normal limits. CT/CT angio chest w abd pel w con IMPRESSION: No acute findings. Radiation Dose CTDIVOL = (mGy): DLP = 934.88~934.88 (mGy-cm)
[2020-12-22] MEDS: sodium chloride 0.9% 1,000 ML 999 ML IV (17:30)
[2020-12-22] MEDS: ondansetron 2 mg/ML SDV 2 mL 4 MG IVP (17:30)
[2020-12-22 17:35] LABS: Basophils % 0.4 %; Eosinophils % 0.3 %; Hematocrit 36.1 % (37.0-47.0); Hemoglobin 11.6 g/dL (11.5-15.3); Lymphocytes # 1.1 10^3/uL (1.5-6.5); Lymphocytes % 11.2 %; Mean Corpuscular HGB Conc 32.1 g/dL (30.0-36.0); Mean Corpuscular Volume 93.3 fL (81-99); Mean Platelet Volume 9.8 fL (7.4-10.4); Monocytes # 0.7 10^3/uL (0.2-0.9); Monocytes % 6.7 %; Neutrophils # 8.15 10^3/uL (1.8-8.0); Neutrophils % 81.1 %; Nucleated Red Blood Cells % 0 %; Platelet Count 352 10^3/cmm (130-400); Red Blood Count 3.87 10^6/uL (4.1-5.3); Red Cell Distribution Width 11.9 % (12.1-15.1); White Blood Count 10.1 10^3/uL (4.5-13.0)
[2020-12-22 17:42] LABS: HCG Qualitative Urine. Negative (Negative)
[2020-12-22] MEDS: lidocaine 2% viscous 15 ML, aluminum-mag hydrox-simethicon 30 ML, sucralfate oral liq 1 GM PO (17:43)
--- NOTE | 2020-12-22 17:46 | W.ED.ABDPA2 ---
HPI - Abdominal Pain General: Chief Complaint: Abdominal Pain Stated Complaint: AB PAIN Time Seen by Provider: 12/22/20 17:06 History of Present Illness: HPI narrative: Patient presents for a return visit for mid abdominal pain that is now radiating up to her right shoulder causing her to have painful breathing as well as shortness of breath. The pain is midline and sharp at times it seems to be worse almost immediately after eating as she was here recently and had dilated small bowel but was not given any specific diet instructions she has been able to keep food down although it quezada and then she did vomit one time. Her bowels have been grayish in color and decreased in amounts she has been trying Reglan at home but that has not been helping. She denies any recent fevers Pain Consistency: constant Related Data: Date of Last Menstrual Period: 12/16/20 Review of Systems Narrative: General: denies fatigue, fever or chills HEENT: denies ear pain, denies nasal congestion, denies vision changes, denies sore throat Neck: denies masses or pain Resp: denies cough, denies shortness of breath, denies pleuritic pain Cardio: denies chest pain, denies edema GI: see HPI denies black/tarry or bloody stools : denies hematuria, denies dysuria Neuro: denies headache, denies dizziness, denies motor or sensory changes Musculoskeletal: denies pain, denies swelling Skin: denies rashes Psych: denies SI or HI Endocrine: denies thyroid symptoms, denies lymphadenopathy all over ROS reviewed and patient denies PFSH ED PFSH: Social History Smoking and tobacco status: former smoker Alcohol intake: current Alcohol intake frequency: few times a month Substance/Drug Use: current Substance/Drug use frequency: daily Substance/Drug use type: Marijuana Female Reproductive History: Date of last menstrual period: 12/16/20 Physical Exam Narrative: EXAM NARRATIVE: General: a/o/3, no distress Head: atraumatic HEENT: normal eyes, normal conjunctiva, normal hearing, normal external nose, normal mouth, mucous membranes moist Neck: FROM, trachea midline Chest: normal expansion, no gross deformities Resp: normal speech, no retractions, no accessory muscle use, CTA bilaterally Cardio: regular rate and rhythm and no murmur, no peripheral edema, normal peripheral pulses GI: Patient's pain is midline and right upper quadrant she does walk a little bit more bent over bowel sounds are quiet : deferred Musculoskeletal: FROM, no pain or gross deformities Neuro: a/o appropriate for age, no gross motor or sensory deficits, CN II-XII grossly intact, normal coordination, normal speech Skin: no rashes Psych: cooperative, normal mood and effect Course Vital Signs: Vital signs: Vital Signs Temperature 98.1 F 12/22/20 16:59 Pulse Rate 74 12/22/20 18:04 Respiratory Rate 18 12/22/20 18:28 Blood Pressure 124/60 12/22/20 18:04 Pulse Oximetry 98 12/22/20 18:04 MDM - Abdominal Pain MDM Narrative: Medical decision making narrative: I reviewed patient's chart she did have dilated small bowel she does have complaints of epigastric pain especially after eating some but I try a GI cocktail but with her pain radiating a to her right shoulder and I would have to consider possible perforation I feel unfortunately work and the need to reCAT scan her and make sure there is no signs of up her for any type of volvulus or intussusception since she will be getting another CAT scan him in a CT her chest just to make sure there is no other underlying PE since she has not been up moving around and she is a smoker. Discussed with patient and her mother that if this is negative that gastritis is definitely a possibility and I do not have any specific test for that out of the ER unfortunately. CT scan was negative and in fact her small intestines had improved. She did have some mild relief with a GI cocktail. Discussed with them that she did recently have a gallbladder ultrasound and 2 CT scans and the only other area that we really cannot see is the inside of her stomach she is now having some heartburn type symptoms that she did tell me food earlier caused a lot of pain therefore were to start her on Prilosec she can get [id number] 40 mg a day for 1 to 2 weeks and then she can reduce to 20 mg a day discussed with her [employer] but they are self-pay and do not feel they could afford it however with good Rx it is only about $15 somata go ahead and write the prescription out and they can choose whether they get it filled I will write her for a few pain pills she appears miserable Differential Diagnosis: Differential diagnosis abdominal pain: Likely abdominal pain, gastroenteritis and small bowel obstruction Medical Records: Attestation: I reviewed the patient's medical records. Lab Data: Attestation: I reviewed the patient's lab results. Labs: Lab Results 12/22/20 12/22/20 12/22/20 Range/Units 17:10 17:10 17:10 WBC 10.1 (4.5-13.0) 10^3/ uL RBC 3.87 L (4.1-5.3) 10^6/u L Hgb 11.6 (11.5-15.3) g/dL Hct 36.1 L (37.0-47.0) % MCV 93.3 (81-99) fL MCH 30.0 (28.0-34.0) pg MCHC 32.1 (30.0-36.0) g/dL RDW 11.9 L (12.1-15.1) % Plt Count 352 (130-400) 10^3/c mm MPV 9.8 (7.4-10.4) fL Neut % (Auto) 81.1 % Lymph % (Auto) 11.2 % [place] % (Auto) 6.7 % Eos % (Auto) 0.3 % Baso % (Auto) 0.4 % Neut # (Auto) 8.15 H (1.8-8.0) 10^3/u L Lymph # (Auto) 1.1 L (1.5-6.5) 10^3/u L [place] # (Auto) 0.7 (0.2-0.9) 10^3/u L Eos # (Auto) 0.0 (0.0-0.8) 10^3/u L Baso # (Auto) 0.0 (0.0-0.1) 10^3/u L Nucleated RBC % (a uto) 0 % Nucleated RBCs # 0.0 /100WBC Sodium 139 (136-145) mmol/L Potassium 3.7 (3.5-5.1) mmol/L Chloride 101 (98-107) mmol/L Carbon Dioxide 28 (22-29) mmol/L Anion Gap 13.7 (5-19) BUN 7 (6-20) mg/dL Creatinine 0.6 (0.5-0.9) mg/dL GFR Calculation 127.5 (90-130) mL/min Glucose 91 (65-115) mg/dL Calculated Osmolal ity 286 (285-295) mOsm/k g Calcium 9.0 (8.5-10.5) mg/dL Total Bilirubin 0.3 (0.15-1.2) mg/dL AST 14 (0-32) U/L ALT 12 (0-33) U/L Alkaline Phosphata se 79 (35-105) IU/L Total Protein 7.9 (6.6-8.7) g/dL Albumin 4.1 (3.5-5.2) g/dL Globulin 3.8 (1.3-4.6) g/dL HCG, Qual Negative (Negative) Urine Color (Yellow) Urine Appearance (CLEAR) Urine pH (5-7) Ur Specific Gravit y (1.005-1.030) Urine Protein (Negative) Urine Glucose (UA) (Normal) Urine Ketones (Negative) Urine Blood (Negative) Urine Nitrate (Negative) Urine Bilirubin (Negative) Urine Urobilinogen (Negative) mg/dL Ur Leukocyte Bethanie ase (Negative) Urine RBC (0-2) /hpf Urine WBC (0-5) /hpf Ur Squamous Epith Cells (0-5) /hpf Calcium Oxalate Cr ystal /hpf Amorphous Sediment Urine Bacteria (NONE) /hpf Urine Mucus /hpf 12/22/20 Range/Units 17:10 WBC (4.5-13.0) 10^3/ uL RBC (4.1-5.3) 10^6/u L Hgb (11.5-15.3) g/dL Hct (37.0-47.0) % MCV (81-99) fL MCH (28.0-34.0) pg MCHC (30.0-36.0) g/dL RDW (12.1-15.1) % Plt Count (130-400) 10^3/c mm MPV (7.4-10.4) fL Neut % (Auto) % Lymph % (Auto) % [place] % (Auto) % Eos % (Auto) % Baso % (Auto) % Neut # (Auto) (1.8-8.0) 10^3/u L Lymph # (Auto) (1.5-6.5) 10^3/u L [place] # (Auto) (0.2-0.9) 10^3/u L Eos # (Auto) (0.0-0.8) 10^3/u L Baso # (Auto) (0.0-0.1) 10^3/u L Nucleated RBC % (a uto) % Nucleated RBCs # /100WBC Sodium (136-145) mmol/L Potassium (3.5-5.1) mmol/L Chloride (98-107) mmol/L Carbon Dioxide (22-29) mmol/L Anion Gap (5-19) BUN (6-20) mg/dL Creatinine (0.5-0.9) mg/dL GFR Calculation (90-130) mL/min Glucose (65-115) mg/dL Calculated Osmolal ity (285-295) mOsm/k g Calcium (8.5-10.5) mg/dL Total Bilirubin (0.15-1.2) mg/dL AST (0-32) U/L ALT (0-33) U/L Alkaline Phosphata se (35-105) IU/L Total Protein (6.6-8.7) g/dL Albumin (3.5-5.2) g/dL Globulin (1.3-4.6) g/dL HCG, Qual (Negative) Urine Color Straw (Yellow) Urine Appearance Sl hazy (CLEAR) Urine pH 5 (5-7) Ur Specific Gravit y 1.025 (1.005-1.030) Urine Protein Neg (Negative) Urine Glucose (UA) Norm (Normal) Urine Ketones Negative (Negative) Urine Blood 2+ H (Negative) Urine Nitrate Negative (Negative) Urine Bilirubin 1+ H (Negative) Urine Urobilinogen 1 H (Negative) mg/dL Ur Leukocyte Bethanie ase Negative (Negative) Urine RBC 0-4 H (0-2) /hpf Urine WBC 0-4 H (0-5) /hpf Ur Squamous Epith Cells 0-4 H (0-5) /hpf Calcium Oxalate Cr ystal 10-15 H /hpf Amorphous Sediment Not Reportable Urine Bacteria Trace (NONE) /hpf Urine Mucus Trace /hpf Discharge Plan Discharge Patient Disposition: Home Clinical Impression: Continuous epigastric pain Condition: Stable Prescriptions: New sucralfate 1 gram tablet 1 g PO Q6H Qty: 60 RF: 0 hydrocodone-acetaminophen 5-325 mg tablet 1 tab PO Q6H PRN (Reason: pain) Qty: 14 RF: 0 promethazine 25 mg tablet 25 mg PO Q6H Qty: 12 RF: 0 No Action ibuprofen 200 mg Tablet 600 mg PO PRN RF: 0 dicyclomine 20 mg tablet 20 mg PO QID Qty: 20 RF: 0 metoclopramide HCl [Reglan] 10 mg tablet 10 mg PO Q6H PRN (Reason: nausea and vomiting) Qty: 10 RF: 0 Tylenol Extra Strength 500 mg Tablet 500 mg PO PRN RF: 0 Discharge Orders: Discharge ED (Routine); Ordered 12/22/20 Ordered By: Marisol Roach Patient Instructions: Abdominal Pain (ED), Opioid Safety Activity Restrictions/Additional Instructions: The sucralfate is a bismuth type tablet that can coat your stomach you can take 1 tablet an hour before meals and 1 at bedtime or you can just take it every 6 hours you can also mix it in water and make it as a slurry. If you download the [employer] maryuri this is approximately $15 at [facility] this is more for symptoms. I do recommend you get some generic Prilosec which is omeprazole and do 40 mg either once a day or you can do 20 mg twice a day for 1 to 2 weeks and then if you are starting to feel better you can reduce it to 20 mg a day for at least a month if not up to 6 weeks Avoid spicy foods avoid citrus foods avoid orange juice or anything citrusy that may be acidic on your stomach avoid alcohol height avoid soda and carbonated beverages You may also try some Maalox or Mylanta that might help coat your esophagus You need to follow-up with your primary care physician and/or you may need further testing like an EGD which is a scope that goes to at a looks in your stomach return if worsening of symptoms fevers chills vomiting uncontrolled You can continue those other 2 medications that they prescribed if you feel they will help however I would not take the metoclopramide and the promethazine at the same time as these are similar type medications for antinausea I would probably try the promethazine instead of the metoclopramide since that did not seem to help but do not take them together Thank you for choosing [facility] for your healthcare needs today. Please realize this is an emergency room and that we are providing you with a medical screening exam and this may not be complete and all inclusive of all the testing and or work up that you may need to determine your ailment or severity of your illness. It is very important that you follow up as instructed or that you return to the Emergency Department should you have concerns or if your condition changes or worsens in any way. Stand Alone Forms: Work/School Release Coding Level of Care Code ED Imaging Administrator for Royal Bates
[2020-12-22 17:47] LABS: Alanine Aminotransferase 12 U/L (0-33); Albumin Level 4.1 g/dL (3.5-5.2); Alkaline Phosphatase 79 IU/L (35-105); Anion Gap 13.7 (5-19); Aspartate Amino Transferase 14 U/L (0-32); Blood Urea Nitrogen 7 mg/dL (6-20); Carbon Dioxide 28 mmol/L (22-29); Chloride 101 mmol/L (98-107); Globulin 3.8 g/dL (1.3-4.6); Glomerular Filtration Rate 127.5 mL/min (90-130); Glucose 91 mg/dL (65-115); Osmolality Calculated 286 mOsm/kg (285-295); Potassium 3.7 mmol/L (3.5-5.1); Sodium 139 mmol/L (136-145); Total Bilirubin 0.3 mg/dL (0.15-1.2); Total Protein 7.9 g/dL (6.6-8.7)
[2020-12-22 18:04] VITALS: BP 124/60; PULSE 74; RESP 20; O2SAT 98
[2020-12-22 18:08] LABS: Glucose Urine UA Norm (Normal); Ketones Urine Negative (Negative); Protein Urine Neg (Negative); Specific Gravity, Urine 1.025 (1.005-1.030); Urine Appearance SL Hazy (CLEAR); Urine Color Straw (Yellow); pH Urine 5 (5-7)
[2020-12-22 18:09] LABS: Bilirubin Urine 1+ (Negative); Blood Urine 2+ (Negative); Leukocyte Esterase Urine Negative (Negative); Nitrate Urine Negative (Negative); Urobilinogen Urine 1 mg/dL (Negative)
[2020-12-22] MEDS: iohexol 350 mg/mL 100 mL Btl IV (18:09)
[2020-12-22 18:10] LABS: Bacteria Urine TRACE /hpf; Mucus Urine TRACE /hpf; RBC Urine 0-4 /hpf (0-2); Squamous Epithelial Cell Urine 0-4 /hpf (0-5)
[2020-12-22 18:11] LABS: WBC Urine 0-4 /hpf (0-5)
[2020-12-22 18:12] LABS: Add Urine Culture? No
[2020-12-22 18:28] VITALS: RESP 18
[2020-12-22] MEDS: HYDROcodone-acetaminophen 7.5-325 mg Tablet 1 TAB PO (18:37)
[2020-12-22] MEDS: promethazine 25 mg Tablet PO (18:37)
[2020-12-22 20:30] VITALS: BP 127/66; PULSE 89; RESP 19; O2SAT 100
[2020-12-22] MEDS: fentaNYL 50 mcg/mL INJ 2mL IVP (20:30)
[2020-12-22] MEDS: pantoprazole DR 40 mg Tablet PO (20:44)
[2020-12-22 20:51] VITALS: BP 127/66; PULSE 76; RESP 18; O2SAT 99
== END 2020-12-22 20:52 | disposition home or self-care (01) ==
PROVIDERS: Emergency Provider Emergency Medicine
DX: R10.13 Epigastric pain (principal); Z87.891 Personal history of nicotine dependence
CPT/HCPCS: 71275; 74177; 80053; 81001; 81025; 85025; 96361; 96374; 96375; 99284; J2405; J3010; J7030; Q0169; Q9967

== ENCOUNTER → 2021-07-09 12:11 | Outpatient (BNVA) | payer OTHER, SELFPAY | PROVIDERS: Visit Provider Nurse Practitioner Family | DX: Z20.828 Contact with and (suspected) exposure to other viral communicable diseases (principal); Z20.822 Contact with and (suspected) exposure to COVID-19 | CPT/HCPCS: 87635 ==

== ENCOUNTER 2025-01-02 03:18 | Emergency (ER) | payer MEDICAID, SELFPAY ==
[2025-01-02 03:21] VITALS: BP 126/66; PULSE 126; RESP 18; TEMP 37; O2SAT 97; BMI 24.3
[2025-01-02] MEDS: thiamine 100 mg/mL 2mL SDV IVP (03:51)
[2025-01-02 03:55] LABS: Basophils # 0.1 10^3/uL (0.0-0.1); Basophils % 0.8 %; Eosinophils # 0.1 10^3/uL (0.0-0.8); Eosinophils % 0.6 %; Hematocrit 42.2 % (36-47); Lymphocytes # 1.5 10^3/uL (0.8-4.8); Lymphocytes % 16.6 %; Mean Corpuscular HGB Conc 33.4 g/dL (30-55); Mean Corpuscular Volume 95.9 fl (85-98); Mean Platelet Volume 9.2 fL (7.4-10.4); Monocytes # 0.4 10^3/uL (0.2-0.9); Monocytes % 4.8 %; Neutrophils # 6.72 10^3/uL (1.8-7.7); Nucleated Red Blood Cells % 0 %; Platelet Count 272 10^3/cmm (157-399); Red Cell Distribution Width 12.1 % (12.1-15.1); White Blood Count 8.73 10^3/uL (3.29-11.43)
[2025-01-02 04:13] LABS: Alanine Aminotransferase 44 U/L (0-33); Albumin Level 4.8 g/dL (3.5-5.2); Alkaline Phosphatase 82 U/L (35-105); Anion Gap 18.7 (5-19); Aspartate Amino Transferase 46 U/L (0-32); Blood Urea Nitrogen 13 mg/dL (6-20); Calcium 9.2 mg/dL (8.5-10.5); Carbon Dioxide 22 mmol/L (22-29); Chloride 108 mmol/L (98-107); Creatinine Clr Calc Pharmacy 89.1417; Globulin 3.4 g/dL (1.3-4.6); Glomerular Filtration Rate 76.9 mL/min (90-130); Glucose 119 mg/dL (65-115); Osmolality Calculated 301 mOsm/kg (285-295); Potassium 3.7 mmol/L (3.5-5.1); Sodium 145 mmol/L (136-145); Total Bilirubin 0.3 mg/dL (0.15-1.2); Total Protein 8.2 g/dL (6.6-8.7)
[2025-01-02 04:15] LABS: Bilirubin Urine Negative (Negative); Blood Urine Trace (Negative); Glucose Urine UA Negative (Normal); Ketones Urine Trace (Negative); Leukocyte Esterase Urine Negative (Negative); Nitrate Urine Negative (Negative); Protein Urine 1+ (Negative); Urine Appearance Clear (CLEAR); Urine Color Yellow (Yellow); Urobilinogen Urine 0.2 mg/dL (Negative); pH Urine 5.5 (5-7)
[2025-01-02 04:17] LABS: Add Urine Microscopic? YES; Bacteria Urine None Seen /hpf; Hyaline Casts Urine 24.38 /lpf; RBC Urine 0-2 /hpf (0-2); Squamous Epithelial Cell Urine 0-5 /hpf (0-5); WBC Urine 0-5 /hpf (0-5)
[2025-01-02 04:21] LABS: Amphetamines Screen Urine Negative (Negative); Barbiturates Screen Urine Negative (Negative); Benzodiazepines Screen Urine Negative (Negative); Cocaine Screen Urine Negative (Negative); Opiate Screen Urine Negative (Negative); PCP Screen Urine Negative (Negative); THC Screen Urine Positive (Negative)
[2025-01-02 04:22] LABS: HCG Qualitative Urine. Negative (Negative)
--- NOTE | 2025-01-02 04:33 | ED_ITS ---
HPI - Alcohol 2 General: Chief Complaint: Alcohol Stated Complaint: MHE/ ETOH Time Seen by Provider: 01/02/25 04:27 History of Present Illness: 24 yo intoxicated female presenting with law enforcement after having to be restrained for becoming combative with her . She is calm currently. she sustained small laceratkons to right 3rd and 4th fingers after running through brush . she has no complaints, and wants to go home . Related Data Home Medications ?Medication ?Instructions ?Recorded ?Confirmed No Known Home Medications 01/02/2512/15 Allergies Allergy/AdvReac Type Severity Reaction Status Date / Time No Known Allergies Allergy Verified 01/02/25 10:40 PFS ED 2 PFSH: Social History Smoking and tobacco/nicotine status: current every day tobacco/nicotine user e- cigarettes E-Cigarette Details: vaporizer device and with nicotine E-cig/vape details: 1 vape device refill/7 days Quit status (tobacco/nicotine): not considering quitting Second hand smoke exposure: No Alcohol intake: current Alcohol intake frequency: few times a month Substance/Drug Use: current Substance/Drug use frequency: daily Physical Exam 2 Const: COMMON NORMALS: no acute distress GENERAL APPEARANCE: cooperative and odor of alcohol detected; not ill appearing HENMT: COMMON NORMALS: normocephalic, atraumatic and Normal external nose present HEAD & SCALP: normocephalic and atraumatic FACE & SINUS: normal facial exam and face symmetric NOSE: Normal external nose present Eye: COMMON NORMALS: Equal, round and reactive pupils present, EOMs intact bilaterally and conjunctivae normal CONJUNCTIVA: Yes conjunctivae normal P UPIL: Yes Equal, round and reactive pupils present Neck/C-Spine: COMMON NORMALS: full ROM GENERAL: Yes trachea midline Chest: CHEST: Yes Symmetrical chest wall rise Resp: COMMON NORMALS: normal respiratory effort, No use of accessory muscles and clear to auscultation bilaterally AUSCULTATION: clear to auscultation bilaterally Cardio: COMMON NORMALS: regular rate and regular rhythm RATE: regular rate RHYTHM: regular rhythm Extremity: NARRATIVE EXTREMITY EXAM: tiny lacerations to extensor surfaces of left fingers 3 and 4. Course 2 Vital Signs: Vital signs: Vital Signs Temperature 98.6 F 01/02/25 03:21 Pulse Rate 126 H 01/02/25 03:21 Respiratory Rate 18 01/02/25 03:21 Blood Pressure 126/66 01/02/25 03:21 Pulse Oximetry 97 01/02/25 03:21 Oxygen Delivery Me thod Room Air 01/02/25 03:21 MDM - Alcohol Medical Decision Making lacerations did not need repair. her has seen her. she is not suicidal or homicidal, simply intoxicated. she wishes to go home. medically she is otherwise stable. she will be discharged to return for any new problems. her sober will care for her. Lab Data 01/02/25 03:42 01/02/25 03:42 Laboratory Results WBC 8.73 10^3/uL (3.29-11.43) 01/02/25 03:42 RBC 4.40 10^6/uL (3.85-5.65) 01/02/25 03:42 Hgb 14.10 g/dL (11.27-16.99) 01/02/25 03:42 Hct 42.2 % (36-47) 01/02/25 03:42 MCV 95.9 fl (85-98) 01/02/25 03:42 MCH 32.0 pg (27-33) 01/02/25 03:42 MCHC 33.4 g/dL (30-55) 01/02/25 03:42 RDW 12.1 % (12.1-15.1) 01/02/25 03:42 Plt Count 272 10^3/cmm (157-399) 01/02/25 03:42 MPV 9.2 fL (7.4-10.4) 01/02/25 03:42 Neut % (Auto) 77.0 % 01/02/25 03:42 Lymph % (Auto) 16.6 % 01/02/25 03:42 [place] % (Auto) 4.8 % 01/02/25 03:42 Eos % (Auto) 0.6 % 01/02/25 03:42 Baso % (Auto) 0.8 % 01/02/25 03:42 Neut # (Auto) 6.72 10^3/uL (1.8-7.7) 01/02/25 03:42 Lymph # (Auto) 1.5 10^3/uL (0.8-4.8) 01/02/25 03:42 [place] # (Auto) 0.4 10^3/uL (0.2-0.9) 01/02/25 03:42 Eos # (Auto) 0.1 10^3/uL (0.0-0.8) 01/02/25 03:42 Baso # (Auto) 0.1 10^3/uL (0.0-0.1) 01/02/25 03:42 Nucleated RBC % (auto) 0 % 01/02/25 03:42 Nucleated RBCs # 0.0 /100WBC 01/02/25 03:42 Sodium 145 mmol/L (136-145) 01/02/25 03:42 Potassium 3.7 mmol/L (3.5-5.1) 01/02/25 03:42 Chloride 108 mmol/L (98-107) H 01/02/25 03:42 Carbon Dioxide 22 mmol/L (22-29) 01/02/25 03:42 Anion Gap 18.7 (5-19) 01/02/25 03:42 BUN 13 mg/dL (6-20) 01/02/25 03:42 Creatinine 0.9 mg/dL (0.5-0.9) 01/02/25 03:42 GFR Calculation 76.9 mL/min (90-130) L 01/02/25 03:42 Glucose 119 mg/dL (65-115) H 01/02/25 03:42 Calculated Osmolality 301 mOsm/kg (285-295) H 01/02/25 03:42 Calcium 9.2 mg/dL (8.5-10.5) 01/02/25 03:42 Total Bilirubin 0.3 mg/dL (0.15-1.2) 01/02/25 03:42 AST 46 U/L (0-32) H 01/02/25 03:42 ALT 44 U/L (0-33) H 01/02/25 03:42 Alkaline Phosphatase 82 U/L (35-105) 01/02/25 03:42 Total Protein 8.2 g/dL (6.6-8.7) 01/02/25 03:42 Albumin 4.8 g/dL (3.5-5.2) 01/02/25 03:42 Globulin 3.4 g/dL (1.3-4.6) 01/02/25 03:42 HCG, Qual Negative (Negative) 01/02/25 03:53 Urine Color Yellow (Yellow) 01/02/25 03:53 Urine Appearance Clear (CLEAR) 01/02/25 03:53 Urine pH 5.5 (5-7) 01/02/25 03:53 Ur Specific [place] 1.020 (1.005-1.030) 01/02/25 03:53 Urine Protein 1+ (Negative) A 01/02/25 03:53 Urine Glucose (UA) Negative (Normal) 01/02/25 03:53 Urine Ketones Trace (Negative) 01/02/25 03:53 Urine Blood Trace (Negative) A 01/02/25 03:53 Urine Nitrate Negative (Negative) 01/02/25 03:53 Urine Bilirubin Negative (Negative) 01/02/25 03:53 Urine Urobilinogen 0.2 mg/dL (Negative) 01/02/25 03:53 Ur Leukocyte Esterase Negative (Negative) 01/02/25 03:53 Urine RBC 0-2 /hpf (0-2) 01/02/25 03:53 Urine WBC 0-5 /hpf (0-5) 01/02/25 03:53 Ur Squamous Epith Cells 0-5 /hpf (0-5) 01/02/25 03:53 Amorphous Sediment Not Reportable 01/02/25 03:53 Urine Bacteria None seen /hpf (NONE) 01/02/25 03:53 Hyaline Casts 24.38 /lpf 01/02/25 03:53 Salicylates < 0.3 mg/dL (3-10) L 01/02/25 03:42 Urine Opiates Screen Negative ng/mL (Negative) 01/02/25 03:53 Acetaminophen < 5.0 ug/mL (10-30) L 01/02/25 03:42 Ur Barbiturates Screen Negative ng/mL (Negative) 01/02/25 03:53 Ur Phencyclidine Scrn Negative ng/mL (Negative) 01/02/25 03:53 Ur Amphetamines Screen Negative ng/mL (Negative) 01/02/25 03:53 U Benzodiazepines Scrn Negative ng/mL (Negative) 01/02/25 03:53 Urine Cocaine Screen Negative ng/mL (Negative) 01/02/25 03:53 U Marijuana (THC) Screen Positive ng/mL (Negative) H 01/02/25 03:53 Ethyl Alcohol 314 mg/dL (0-10) H* 01/02/25 03:42 No radiology studies performed this visit Discharge Plan Discharge Patient Disposition: Home Clinical Impression: Alcoholic intoxication, Laceration of fingers without complication Condition: Stable Prescriptions: No Action No Known Home Medications Discharge Orders: Discharge ED (Routine); Ordered 01/02/25 Ordered By: Rusty Howard Patient Instructions: Laceration (ED), Alcohol Intoxication (ED), Opioid Safety, Pain Management Activity Restrictions/Additional Instructions: Keep fingers dry for 12 hours, then you may wash with soap and running water. Abstain from alcohol. Drink plenty of clear liquids otherwise. Return for any problems. Print Language: [place] Coding Level of Care Code ED Case Management Assistant for Royal Bates
[2025-01-02 04:50] LABS: Acetaminophen < 5.0 ug/mL (10-30); Salicylate < 0.3 mg/dL (3-10)
[2025-01-02 04:51] LABS: Alcohol Level 314 mg/dL (0-10)
[2025-01-02 05:28] LABS: UA Slide Review UA Slide Review Perf
== END 2025-01-02 04:46 | disposition home or self-care (01) ==
PROVIDERS: Emergency Provider Emergency Medicine
DX: S61.213A Laceration without foreign body of left middle finger without damage to nail, initial encounter (principal); S61.215A Laceration without foreign body of left ring finger without damage to nail, initial encounter; F10.129 Alcohol abuse with intoxication, unspecified; Y90.8 Blood alcohol level of 240 mg/100 ml or more; F17.290 Nicotine dependence, other tobacco product, uncomplicated; X58.XXXA Exposure to other specified factors, initial encounter
CPT/HCPCS: 80053; 80306; 80307; 81001; 81025; 85025; 96374; 99284; J3411

== ENCOUNTER 2025-01-02 10:32 | Inpatient (IN) | payer SELFPAY ==
[2025-01-02 10:35] VITALS: BP 132/90; PULSE 104; TEMP 36.7; O2SAT 97; BMI 25.9
[2025-01-02 11:05] LABS: HCG Qualitative Urine. Negative (Negative)
--- NOTE | 2025-01-02 11:08 | ED.C_ITS ---
HPI - Psych 2 General: Chief Complaint: Psychiatric Symptoms Stated Complaint: MHE Time Seen by Provider: 01/02/25 10:34 Source: patient Mode of arrival: ambulatory Limitations: no limitations History of Present Illness: 24-year-old female who states that she h as been having increasing depression along with suicidal thoughts for the last week states she has been under a lot of stress her cat and dog as well. She states that she used to be on meds but has not taken them in 2 years she denies any worse improving factors denies any specific plan Associated symptoms: Reports depression and suicidal ideation Related Data Home Medications ?Medication ?Instructions ?Recorded ?Confirmed No Known Home Medications 01/02/2512/15 Allergies Allergy/AdvReac Type Severity Reaction Status Date / Time No Known Allergies Allergy Verified 01/02/25 10:40 Review of Systems 2 Const: Denies: fever(s), chills, body aches or change in appetite ENMT: Denies: throat pain or dental pain Card: Denies: chest pain Resp: Denies: dyspnea GI: Denies: abdominal pain, nausea, vomiting or diarrhea Musc: Denies: neck pain or back pain Skin/Breast: Denies: rash Neuro: Denies: headache(s) Psych: Reports: depression and suicidal ideation PFSH ED 2 PFSH: Social History Smoking and tobacco/nicotine status: current every day tobacco/nicotine user e- cigarettes E-Cigarette Details: vaporizer device and with nicotine E-cig/vape details: 1 vape device refill/7 days Quit status (tobacco/nicotine): not considering quitting Second hand smoke exposure: No Alcohol intake: current Alcohol intake frequency: few times a month Substance/Drug Use: current Substance/Drug use frequency: daily Physical Exam 2 Const: COMMON NORMALS: no acute distress, patient oriented x3 and healthy appearing HENMT: COMMON NORMALS: normocephalic and atraumatic HEAD & SCALP: n ormocephalic and atraumatic Eye: COMMON NORMALS: conjunctivae normal CONJUNCTIVA: Yes conjunctivae normal Neck/C-Spine: COMMON NORMALS: full ROM and supple Chest: COMMONS NORMALS: normal inspection of the chest Resp: COMMON NORMALS: normal respiratory effort Cardio: COMMON NORMALS: regular rate RATE: regular rate Extremity: COMMON NORMALS: normal to inspection and full ROM Neuro: COMMON NORMALS: patient oriented x3, moves all extremities and no focal motor deficits Psych: COMMON NORMALS: mental status grossly normal, Normal thought process present and cooperative MOOD & AFFECT: Yes depressed mood THOUGHT PROCESS: Normal thought process present THOUGHT CONTENT: Yes Suicidality present Skin: COMMON NORMALS: no rashes or lesions noted and no wounds GENERAL SKIN EXAM: no rashes or lesions noted Course 2 Vital Signs: Vital signs: Vital Signs Temperature 98.0 F 01/02/25 10:35 Pulse Rate 104 H 01/02/25 10:35 Blood Pressure 132/90 01/02/25 10:35 Pulse Oximetry 97 01/02/25 10:35 Oxygen Delivery Me thod Room Air 01/02/25 10:35 MDM - Psych Medical Decision Making Patient presents here with suicidal ideation she is placed under 96-hour hold will admit at this time has a possible right middle phalanx fracture we will splint her finger she is follow-up after discharge. Medical Records I reviewed the patient's medical records. Lab Data I reviewed the patient's lab results. 01/02/25 11:10 01/02/25 11:10 Radiology Impressions Hand X-Ray 01/02/25 11:57 IMPRESSION: 1. Subtle cortical irregularity of the middle phalanx long finger raising the question of nondisplaced fracture. Correlation with point tenderness is recommended. 2. Chronic appearing 5th metacarpal base fracture. If symptomatic, consider correlation with CT to exclude acute on chronic injury. Laboratory Results WBC 9.68 10^3/uL (3.29-11.43) 01/02/25 11:10 RBC 3.79 10^6/uL (3.85-5.65) L 01/02/25 11:10 Hgb 12.50 g/dL (11.27-16.99) 01/02/25 11:10 Hct 36.4 % (36-47) 01/02/25 11:10 MCV 96.0 fl (85-98) 01/02/25 11:10 MCH 33.0 pg (27-33) 01/02/25 11:10 MCHC 34.3 g/dL (30-55) 01/02/25 11:10 RDW 12.4 % (12.1-15.1) 01/02/25 11:10 Plt Count 227 10^3/cmm (157-399) 01/02/25 11:10 MPV 9.2 fL (7.4-10.4) 01/02/25 11:10 Neut % (Auto) 79.9 % 01/02/25 11:10 Lymph % (Auto) 13.4 % 01/02/25 11:10 [facility] [place] % (Auto) 5.7 % 01/02/25 11:10 Eos % (Auto) 0.0 % 01/02/25 11:10 Baso % (Auto) 0.6 % 01/02/25 11:10 Neut # (Auto) 7.73 10^3/uL (1.8-7.7) H 01/02/25 11:10 Lymph # (Auto) 1.3 10^3/uL (0.8-4.8) 01/02/25 11:10 [facility] [place] [facility] # (Auto) 0.6 10^3/uL (0.2-0.9) 01/02/25 11:10 Eos # (Auto) 0.0 10^3/uL (0.0-0.8) 01/02/25 11:10 Baso # (Auto) 0.1 10^3/uL (0.0-0.1) 01/02/25 11:10 Nucleated RBC % (auto) 0 % 01/02/25 11:10 Nucleated RBCs # 0.0 /100WBC 01/02/25 11:10 Sodium 143 mmol/L (136-145) 01/02/25 11:10 Potassium 4.2 mmol/L (3.5-5.1) 01/02/25 11:10 Chloride 106 mmol/L (98-107) 01/02/25 11:10 Carbon Dioxide 22 mmol/L (22-29) 01/02/25 11:10 Anion Gap 19.2 (5-19) H 01/02/25 11:10 BUN 8 mg/dL (6-20) 01/02/25 11:10 Creatinine 0.8 mg/dL (0.5-0.9) 01/02/25 11:10 GFR Calculation 88.1 mL/min (90-130) L 01/02/25 11:10 Glucose 108 mg/dL (65-115) 01/02/25 11:10 Calculated Osmolality 295 mOsm/kg (285-295) 01/02/25 11:10 Calcium 8.7 mg/dL (8.5-10.5) 01/02/25 11:10 Total Bilirubin 0.3 mg/dL (0.15-1.2) 01/02/25 11:10 AST 47 U/L (0-32) H 01/02/25 11:10 ALT 39 U/L (0-33) H 01/02/25 11:10 Alkaline Phosphatase 68 U/L (35-105) 01/02/25 11:10 Total Protein 7.4 g/dL (6.6-8.7) 01/02/25 11:10 Albumin 4.4 g/dL (3.5-5.2) 01/02/25 11:10 Globulin 3.0 g/dL (1.3-4.6) 01/02/25 11:10 HCG, Qual Negative (Negative) 01/02/25 10:50 Salicylates < 0.3 mg/dL (3-10) L 01/02/25 11:10 Urine Opiates Screen Negative ng/mL (Negative) 01/02/25 10:56 Acetaminophen < 5.0 ug/mL (10-30) L 01/02/25 11:10 Ur Barbiturates Screen Negative ng/mL (Negative) 01/02/25 10:56 Ur Phencyclidine Scrn Negative ng/mL (Negative) 01/02/25 10:56 Ur Amphetamines Screen Negative ng/mL (Negative) 01/02/25 10:56 U Benzodiazepines Scrn Negative ng/mL (Negative) 01/02/25 10:56 Urine Cocaine Screen Negative ng/mL (Negative) 01/02/25 10:56 U Marijuana (THC) Screen Positive ng/mL (Negative) H 01/02/25 10:56 Ethyl Alcohol 245 mg/dL (0-10) H 01/02/25 11:10 All radiology interpretation(s) finalized by discharge Discharge Plan Discharge Patient Disposition: Admitted As Inpatient Clinical Impression: Alcoholic intoxication, Suicidal ideation, Fracture of phalanx of right middle finger Condition: Stable Coding Level of Care Code ED [employer] for [facility]
--- NOTE | 2025-01-02 11:28 | PC.PHAR ---
Pt states has not taken medications since 01/08/2022. Profile showes Fluoxetine 40mg daily, Gabapentin 100mg tid, and Hydroxyzine 25mg bid prn.
[2025-01-02 11:31] LABS: Basophils # 0.1 10^3/uL (0.0-0.1); Basophils % 0.6 %; Hematocrit 36.4 % (36-47); Lymphocytes # 1.3 10^3/uL (0.8-4.8); Lymphocytes % 13.4 %; Mean Corpuscular HGB Conc 34.3 g/dL (30-55); Mean Platelet Volume 9.2 fL (7.4-10.4); Monocytes # 0.6 10^3/uL (0.2-0.9); Monocytes % 5.7 %; Neutrophils # 7.73 10^3/uL (1.8-7.7); Neutrophils % 79.9 %; Nucleated Red Blood Cells % 0 %; Platelet Count 227 10^3/cmm (157-399); Red Blood Count 3.79 10^6/uL (3.85-5.65); Red Cell Distribution Width 12.4 % (12.1-15.1); White Blood Count 9.68 10^3/uL (3.29-11.43)
[2025-01-02 11:56] LABS: Alanine Aminotransferase 39 U/L (0-33); Albumin Level 4.4 g/dL (3.5-5.2); Alcohol Level 245 mg/dL (0-10); Alkaline Phosphatase 68 U/L (35-105); Anion Gap 19.2 (5-19); Aspartate Amino Transferase 47 U/L (0-32); Blood Urea Nitrogen 8 mg/dL (6-20); Calcium 8.7 mg/dL (8.5-10.5); Carbon Dioxide 22 mmol/L (22-29); Chloride 106 mmol/L (98-107); Creatinine Clr Calc Pharmacy 95.5598; Glomerular Filtration Rate 88.1 mL/min (90-130); Glucose 108 mg/dL (65-115); Osmolality Calculated 295 mOsm/kg (285-295); Potassium 4.2 mmol/L (3.5-5.1); Sodium 143 mmol/L (136-145); Total Bilirubin 0.3 mg/dL (0.15-1.2); Total Protein 7.4 g/dL (6.6-8.7)
--- NOTE | 2025-01-02 11:57 | XRR_ITS ---
PROCEDURE INFORMATION: Exam: XR Right Hand Exam date and time: 01/02/2025 12:09 PM Age: 24 years old Clinical indication: Injury or trauma; Other: Punched a wall; Blunt trauma (contusions or hematomas); Hand; Right TECHNIQUE: Imaging protocol: Radiologic exam of the right hand. Views: 3 or more views. COMPARISON: No relevant prior studies available. FINDINGS: Bones/joints: Subtle cortical irregularity of the middle phalanx long finger raising the question of nondisplaced fracture. Correlation with point tenderness is recommended. Chronic appearing 5th metacarpal base fracture. Radiocarpal articulation and carpal rows are grossly intact. Soft tissues: Grossly unremarkable. XR/XR hand RT min 3V* [id number] IMPRESSION: 1. Subtle cortical irregularity of the middle phalanx long finger raising the question of nondisplaced fracture. Correlation with point tenderness is recommended. 2. Chronic appearing 5th metacarpal base fracture. If symptomatic, consider correlation with CT to exclude acute on chronic injury.
[2025-01-02 11:58] LABS: Acetaminophen < 5.0 ug/mL (10-30); Salicylate < 0.3 mg/dL (3-10)
[2025-01-02] MEDS: HYDROcodone-acetaminophen 5-325 mg Tablet 1 TAB PO (11:58)
[2025-01-02 12:24] LABS: Amphetamines Screen Urine Negative (Negative); Barbiturates Screen Urine Negative (Negative); Benzodiazepines Screen Urine Negative (Negative); Cocaine Screen Urine Negative (Negative); Opiate Screen Urine Negative (Negative); PCP Screen Urine Negative (Negative); THC Screen Urine Positive (Negative)
[2025-01-02] MEDS: nicotine 21 mg Patch 1 PATCH TRANSDERMA (14:08)
[2025-01-02] MEDS: LORazepam 1 mg Tablet PO (14:08)
[2025-01-02] MEDS: acetaminophen 325 mg Tablet 650 MG PO (16:37)
[2025-01-02] MEDS: hyDROXYzine 25 mg Capsule 50 MG PO (16:37)
[2025-01-02 19:28] VITALS: BP 128/73; PULSE 113; RESP 18; TEMP 37.6; O2SAT 99
[2025-01-02 19:29] VITALS: BP 128/73; PULSE 113; RESP 18; TEMP 37.6; O2SAT 99
[2025-01-02] MEDS: nicotine 2 mg Gum BUCCAL (21:30)
[2025-01-02 23:59] VITALS: BP 100/64; PULSE 100; RESP 18; TEMP 36.9; O2SAT 96
[2025-01-03 03:58] VITALS: BP 99/64; PULSE 90; RESP 18; TEMP 36.6; O2SAT 96
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
[2025-01-03 07:25] VITALS: BP 121/72; PULSE 95; RESP 16; TEMP 36.6; O2SAT 99
[2025-01-03] MEDS: multivitamin therapeutic Tablet 1 TAB PO (08:02)
[2025-01-03] MEDS: hyDROXYzine 25 mg Capsule 50 MG PO ×2 (08:02→21:05)
[2025-01-03] MEDS: folic acid 1 mg Tablet PO (08:02)
[2025-01-03] MEDS: thiamine 100 mg Tablet PO (08:02)
[2025-01-03] MEDS: acetaminophen 325 mg Tablet 650 MG PO ×2 (08:14→21:05)
[2025-01-03] MEDS: nicotine 2 mg Gum BUCCAL ×5 (08:52→21:10)
[2025-01-03 12:00] VITALS: BP 112/74; PULSE 72; RESP 16; TEMP 37; O2SAT 100
[2025-01-03 15:36] VITALS: BP 132/78; PULSE 102; RESP 16; TEMP 37.7; O2SAT 99
[2025-01-03 19:38] VITALS: BP 110/71; PULSE 95; RESP 18; TEMP 37.3; O2SAT 99
[2025-01-03] MEDS: trazodone 50 mg Tablet PO (21:05)
[2025-01-04] VITALS: BP 103/62; PULSE 82; RESP 18; TEMP 36.6; O2SAT 98
[2025-01-04 04:00] VITALS: BP 99/61; PULSE 86; RESP 18; TEMP 36.4; O2SAT 98
[2025-01-04] MEDS: multivitamin therapeutic Tablet 1 TAB PO (07:46)
[2025-01-04] MEDS: thiamine 100 mg Tablet PO (07:46)
[2025-01-04] MEDS: nicotine 2 mg Gum BUCCAL ×5 (07:46→19:19)
[2025-01-04] MEDS: folic acid 1 mg Tablet PO (07:46)
[2025-01-04 12:00] VITALS: BP 101/57; PULSE 96; RESP 17; TEMP 37.3; O2SAT 98
[2025-01-04 16:00] VITALS: BP 141/76; PULSE 95; RESP 18; TEMP 38; O2SAT 96
--- NOTE | 2025-01-04 18:22 | P.NPUPN_ITS ---
Subjective NPU 2 Subjective: Patient presented today reporting that things are going okay. She reported that she understood the situation that led to her still being in the hospital. We discussed interaction with [facility] and her describing suicidality against the backdrop of significant alcohol use making for a risky situation. She continues to report a plan to discontinue alcohol use altogether and reported some depression and anxiety and we discussed the risks, benefits and alternatives of adding Prozac which she has had in the past at 20 mg p.o. daily and also adding naltrexone initially 25 mg but with the plan to move to 50 mg quickly to assist in cravings and she understood and agreed to proceed as is documented in this note. We discussed the likelihood of discharge tomorrow. Mental Status Exam 2 MSE Comments: This is a well-nourished well-developed white female in hospital scrubs with adequate grooming and eye contact. No abnormal movements except for mild psychomotor retardation. Cooperative with exam in mild distress. Speech was decreased rate and normal volume. Mood described as a little better than yesterday, affect congruent. Thought process organized. Thought content: Patient denied suicidal or homicidal ideation, but there were no delusions reported or noted, she denied any auditory or visual hallucinations. Denies current thoughts to hurt or kill self or others. Denies hallucinations or delusions. Experiences anxiety, particularly in social situations and concerning upcoming tasks. Acknowledges probable depression since a young age, with feelings of sadness and sleeping too much. Tends to sleep too much when depressed. Eats enough to sustain body, no significant changes in appetite reported. Recent stressors include the of dog and cat, hormonal imbalance due to clenbuterol use, and high alcohol consumption. Acknowledged impaired decision-making while intoxicated. Mood is good today, better than two days ago. Attention and concentration were intact and memory appeared mostly reliable but none were formally tested. She is alert and oriented x 3. Insight and judgment appear fair impulse control is limited versus impaired. Vitals/I&O/Wt Last Vital Signs Temp 98.4 F 01/04/25 20:00 Pulse 91 01/04/25 20:00 Resp 20 H 01/04/25 20:00 BP 124/84 01/04/25 20:00 Pulse Ox 92 01/04/25 20:00 O2 Del Method Room Air 01/04/25 20:00 Data NPU 01/02/25 11:10 01/02/25 11:10 A&P Assessment and plan (1) Generalized anxiety disorder: (2) Major depressive disorder, recurrent, moderate: (3) Cannabis use disorder, moderate, dependence: (4) Alcohol abuse: (5) Alcoholic intoxication: (6) Suicidal ideation: Plan This is a 24-year-old white female with some history of mental health challenges with limited treatment and history of addiction with most recent increasing alcohol use who presented with a UDS positive for cannabis and a blood alcohol 245. The assessment indicates a history of depression and anxiety, with the patient experiencing significant emotional distress exacerbated by recent substance use, including alcohol and clenbuterol. The patient has a family history of mental health issues, including PTSD, and bipolar disorder which may contribute to their current mental health challenges. The patient has a history of using fluoxetine and gabapentin for mental health management but is currently not on any psychiatric medication. The patient expresses a desire to engage in therapy rather than restart medication. There is no current indication of suicidal ideation or intent, but the patient has experienced significant stressors, including a traumatic past relationship and a challenging family environment. 1. Consider medication. Restart Prozac which had been a medication utilized in the past with some success and explained sometimes needing higher doses to accomplish the antianxiety element. We also agreed to start naltrexone initially 25 mg daily which we will discharge on 50 mg with 3 more days of half dose before going to the full 50 mg. 2. Encouraged individual, group and milieu therapy. 3. Continue every 15 minute checks for safety. 4. Recommend sober living treatment after discharge at the highest level care to which she is willing to commit. 5. Obtain collateral information. 6. Observe for safety against the backdrop of the 96-hour hold. 7. Tentative discharge plan for tomorrow. PDMP PDMP Reviewed: Not Reviewed Involuntary Hold Information 2 Hold Status: Legal Status: 96 Hour Hold Date/Time Hold Expires: 01/06/2025 1119 Attestations NPU 2 Medical Necessity Statement*: Inpatient hospitalization is medically necessary and the clinically appropriate intervention at this time. We will monitor/initiate medications and make changes as indicated. Likely length of stay is 1 additional day. Coding Level of Care Code Acute Code for [facility] Diagnoses Generalized anxiety disorder F41.1 Major depressive disorder, recurrent, moderate F33.1 Cannabis use disorder, moderate, dependence F12.20 Alcohol abuse F10.10 Alcoholic intoxication F10.929 Suicidal ideation R45.851
[2025-01-04] MEDS: fluoxetine 20 mg Capsule PO (19:18)
[2025-01-04 20:00] VITALS: BP 124/84; PULSE 91; RESP 20; TEMP 36.9; O2SAT 92
[2025-01-04] MEDS: nicotine 4 mg lozenge MUCOUS MEM (21:41)
[2025-01-05] VITALS: BP 118/75; PULSE 77; RESP 18; TEMP 36.8; O2SAT 98
[2025-01-05 03:56] VITALS: BP 104/69; PULSE 83; RESP 18; TEMP 36.8; O2SAT 96
[2025-01-05] MEDS: nicotine 4 mg lozenge MUCOUS MEM ×2 (07:53→12:37)
[2025-01-05 08:00] VITALS: BP 117/82; PULSE 90; RESP 18; TEMP 36.9; O2SAT 98
[2025-01-05] MEDS: thiamine 100 mg Tablet PO (09:25)
[2025-01-05] MEDS: fluoxetine 20 mg Capsule PO (09:25)
[2025-01-05] MEDS: naltrexone hcl 50 mg Tablet 25 MG PO (09:25)
[2025-01-05] MEDS: multivitamin therapeutic Tablet 1 TAB PO (09:25)
[2025-01-05] MEDS: folic acid 1 mg Tablet PO (09:26)
[2025-01-05 12:00] VITALS: BP 130/84; PULSE 86; RESP 17; TEMP 37.2; O2SAT 98
--- NOTE | 2025-01-05 13:17 | P.NPUDS_ITS ---
Diagnoses at Discharge Discharge Diagnosis (1) Generalized anxiety disorder: Status: Acute (2) Major depressive disorder, recurrent, moderate: Status: Acute (3) Cannabis use disorder, moderate, dependence: Status: Acute (4) Alcohol abuse: Status: Acute (5) Alcoholic intoxication: Status: Acute (6) Suicidal ideation: Status: Acute Reason for Visit Reason for Visit: [facility] Involuntary Hold Information Hold Status: Legal Status: 96 Hour Hold Date/Time Hold Expires: 01/06/2025 1119 Discharge Data Studies Completed and Pending: Completed Studies During Hospitalization Category Date Time Status XR hand RT min 3V * 26031 Stat Exams 01/02/25 11:57 Completed Radiology Impressions Hand X-Ray 01/02/25 11:57 IMPRESSION: 1. Subtle cortical irregularity of the m iddle phalanx long finger raising the question of nondisplaced fracture. Correlation with point tenderness is recommended. 2. Chronic appearing 5th metacarpal base fracture. If symptomatic, consider correlation with CT to exclude acute on chronic injury. Laboratory Results WBC 9.68 10^3/uL (3.2 9-11.43) 01/02/25 11:10 RBC 3.79 10^6/uL (3.8 5-5.65) L 01/02/25 11:10 Hgb 12.50 g/dL (11.27 -16.99) 01/02/25 11:10 Hct 36.4 % (36-47) 01/02/25 11:10 MCV 96.0 fl (85-98) 01/02/25 11:10 MCH 33.0 pg (27-33) 01/02/25 11:10 MCHC 34.3 g/dL (30-55) 01/02/25 11:10 RDW 12.4 % (12.1-15.1 ) 01/02/25 11:10 Plt Count 227 10^3/cmm (157 -399) 01/02/25 11:10 MPV 9.2 fL (7.4-10.4) 01/02/25 11:10 Neut % (Auto) 79.9 % 01/02/25 11:10 Lymph % (Auto) 13.4 % 01/02/25 11:10 Rosebud % (Auto) 5.7 % 01/02/25 11:10 Eos % (Auto) 0.0 % 01/02/25 11:10 Baso % (Auto) 0.6 % 01/02/25 11:10 Neut # (Auto) 7.73 10^3/uL (1.8 -7.7) H 01/02/25 11:10 Lymph # (Auto) 1.3 10^3/uL (0.8- 4.8) 01/02/25 11:10 Rosebud # (Auto) 0.6 10^3/uL (0.2- 0.9) 01/02/25 11:10 Eos # (Auto) 0.0 10^3/uL (0.0- 0.8) 01/02/25 11:10 Baso # (Auto) 0.1 10^3/uL (0.0- 0.1) 01/02/25 11:10 Nucleated RBC % (a uto) 0 % 01/02/25 11:10 Nucleated RBCs # 0.0 /100WBC 01/02/25 11:10 Sodium 143 mmol/L (136-1 45) 01/02/25 11:10 Potassium 4.2 mmol/L (3.5-5 .1) 01/02/25 11:10 Chloride 106 mmol/L (98-10 7) 01/02/25 11:10 Carbon Dioxide 22 mmol/L (22-29) 01/02/25 11:10 Anion Gap 19.2 (5-19) H 01/02/25 11:10 BUN 8 mg/dL (6-20) 01/02/25 11:10 Creatinine 0.8 mg/dL (0.5-0. 9) 01/02/25 11:10 GFR Calculation 88.1 mL/min (90-1 30) L 01/02/25 11:10 Glucose 108 mg/dL (65-115 ) 01/02/25 11:10 Calculated Osmolal ity 295 mOsm/kg (285- 295) 01/02/25 11:10 Calcium 8.7 mg/dL (8.5-10 .5) 01/02/25 11:10 Total Bilirubin 0.3 mg/dL (0.15-1 .2) 01/02/25 11:10 AST 47 U/L (0-32) H 01/02/25 11:10 ALT 39 U/L (0-33) H 01/02/25 11:10 Alkaline Phosphata se 68 U/L (35-105) 01/02/25 11:10 Total Protein 7.4 g/dL (6.6-8.7 ) 01/02/25 11:10 Albumin 4.4 g/dL (3.5-5.2 ) 01/02/25 11:10 Globulin 3.0 g/dL (1.3-4.6 ) 01/02/25 11:10 HCG, Qual Negative (Negati ve) 01/02/25 10:50 Salicylates < 0.3 mg/dL (3-10 ) L 01/02/25 11:10 Urine Opiates Scre en Negative ng/mL (N egative) 01/02/25 10:56 Acetaminophen < 5.0 ug/mL (10-3 0) L 01/02/25 11:10 Ur Barbiturates Sc reen Negative ng/mL (N egative) 01/02/25 10:56 Ur Phencyclidine S crn Negative ng/mL (N egative) 01/02/25 10:56 Ur Amphetamines Sc reen Negative ng/mL (N egative) 01/02/25 10:56 U Benzodiazepines Scrn Negative ng/mL (N egative) 01/02/25 10:56 Urine Cocaine Scre en Negative ng/mL (N egative) 01/02/25 10:56 U Marijuana (THC) Screen Positive ng/mL (N egative) H 01/02/25 10:56 Ethyl Alcohol 245 mg/dL (0-10) H 01/02/25 11:10 Vitals: Last Vital Signs Temp 98.9 F 01/05/25 12:00 Pulse 86 01/05/25 12:00 Resp 17 01/05/25 12:00 BP 130/84 01/05/25 12:00 Pulse Ox 98 01/05/25 12:00 O2 Del Method Room Air 01/05/25 03:56 Discharge Plan Discharge Patient Disposition: Home Condition: Stable Prescriptions: New naltrexone 50 mg Tablet 50 mg PO DAILY 30 Days Qty: 30 1RF fluoxetine 20 mg Capsule 20 mg PO DAILY 30 Days Qty: 30 1RF thiamine mononitrate (vit B1) [Vitamin B-1 (mononitrate)] 100 mg Tablet 100 mg PO DAILY 30 Days Qty: 30 1RF Rx Instructions: Half tab for 3 more days then increase to 1 tab daily thereafter trazodone 50 mg Tablet 30 mg PO BEDTIME PRN (Reason: Sleep) 30 Days Qty: 30 0RF Discharge Orders: Discharge Order (Routine); Ordered 01/05/25 Ordered By: Salvador Baker Referrals: [facility] [Outside] Discharge Diet: Regular Discharge Activity: Resume usual activity Patient Instructions: Opioid Safety Discharge Attestations NPU Time Spent in Discharge Care*: less than 30 min Specific Discharge Activities: Specific discharge activities: educating patient, discussing with case manager specialist/social workers/dc planners, documenting/other paperwork and evaluating patient/reviewing data Coding Level of Care Code Acute Code for [facility] Diagnoses Generalized anxiety disorder F41.1 Major depressive disorder, recurrent, moderate F33.1 Cannabis use disorder, moderate, dependence F12.20 Alcohol abuse F10.10 Alcoholic intoxication F10.929 Suicidal ideation R45.851
[2025-01-05 13:27] VITALS: BP 130/84; PULSE 86; RESP 17; TEMP 37.2; O2SAT 98
== END 2025-01-05 15:15 | disposition home or self-care (01) | DRG 885 ==
LOC: ER 14:09 → NP 15:15
PROVIDERS: Admitting Provider Psychiatry & Neurology Psychiatry; Emergency Provider Emergency Medicine; Visit Provider Psychiatry & Neurology Psychiatry
DX: F33.1 Major depressive disorder, recurrent, moderate (principal); R45.851 Suicidal ideations; F10.129 Alcohol abuse with intoxication, unspecified; F17.210 Nicotine dependence, cigarettes, uncomplicated; X58.XXXA Exposure to other specified factors, initial encounter; F41.1 Generalized anxiety disorder; F12.20 Cannabis dependence, uncomplicated
CPT/HCPCS: 36415; 73130; 80053; 80306; 80307; 81025; 85025; 97150; 97165; 99285; J9999

== ENCOUNTER → 2025-04-11 14:21 | Outpatient (BNVA) | payer SELFPAY | DX: S52.501A Unspecified fracture of the lower end of right radius, initial encounter for closed fracture (principal); X58.XXXA Exposure to other specified factors, initial encounter | CPT/HCPCS: 73090 ==

== ENCOUNTER → 2025-04-28 10:21 | Outpatient (BNVA) | payer SELFPAY | PROVIDERS: Visit Provider Orthopaedic Surgery | DX: S52.531D Colles' fracture of right radius, subsequent encounter for closed fracture with routine healing (principal); X58.XXXD Exposure to other specified factors, subsequent encounter | CPT/HCPCS: 73110 ==

== ENCOUNTER → 2025-05-09 15:14 | Outpatient (BNVA) | payer SELFPAY | PROVIDERS: Visit Provider Orthopaedic Surgery | DX: S52.531D Colles' fracture of right radius, subsequent encounter for closed fracture with routine healing (principal); X58.XXXD Exposure to other specified factors, subsequent encounter | CPT/HCPCS: 73110 ==